=== PATIENT | male | born 1965 | race Hispanic/Latino ===

== ENCOUNTER 2017-10-31 09:00 | Emergency (ER) | payer OTHER ==
[~2017-10-31] VITALS: Ht 182.9 cm; Wt 112.5 kg
[~2017-10-31 09:00] MED LIST: MELOXICAM7.5 MG PO; METHOCARBAMOL750 MG PO; NORCO 10-325 T1 EACH
[2017-10-31] MEDS ORDERED: ALBUTEROL/IPRATROPIUM 3 ML NEB NEB ONE ×2 (09:30→10:00)
--- NOTE | 2017-10-31 09:33 | Diagnostic Imaging Report ---
PROCEDURE:CXR 2 VIEW - HOPD COMPARISON:None. INDICATIONS:PRODUCTIVE COUGH X3 DAYS, NO FEVER FINDINGS: Lines: None Lungs and pleura: The lungs are well inflated and clear. No evidence of pneumonia or pulmonary edema. No evidence of pleural effusion or pneumothorax. Heart and mediastinum: The cardiomediastinal silhouette is unremarkable. Bones: No acute bony findings. CONCLUSION: No acute radiographic abnormality. Dictated by: LEANDRA MINER M.D. on 10/31/2017 at 9:40 Electronically approved by: LEANDRA MINER M.D. on 10/31/2017 at 9:40
[2017-10-31 10:32] VITALS: BP 151/100
== END 2017-10-31 10:33 | disposition home or self-care (01) ==
LOC: FSED 09:00
DX: R05 Cough (principal); J98.01 Acute bronchospasm; R03.0 Elevated blood-pressure reading, without diagnosis of hypertension
CPT/HCPCS: 71046; 99283

== ENCOUNTER 2017-11-27 12:18 | Emergency (ER) | payer OTHER ==
[~2017-11-27] VITALS: Ht 182.9 cm; Wt 113.4 kg
--- OUTSIDE RECORDS SUMMARY | 2017-11-27 12:21 | XMS REPORT | Clinical Summary ---
Author Author [facility] Address Unknown Phone Unavailable Care Team Providers Care Baggageman Name Role Phone PCP Unavailable Allergies Active Allergy Reactions Severity Noted Date Comments Poison Ange Extract Anaphylaxis High 06/13/2017 Vancomycin Analogues Other (See Comments) 08/02/2017 Redmans syndrome Current Medications Prescription Sig. Disp. Refills Start End Date Status Date HYDROcodone-acetaminophen Take 1 tablet by mouth 30 tablet 0 08/16/19 Active (NORCO) 10-325 mg per every 6 (six) hours as 18 tablet needed for Pain. Max Daily Amount: 4 tablets traMADol (ULTRAM) 50 mg Take 50 mg by mouth every 06/22/19 Discontin tablet 6 (six) hours as needed 18 ued for Pain. aspirin 325 MG EC tablet Take 1 tablet (325 mg 30 tablet 0 06/23/19 07/19/19 Discontin total) by mouth daily for 18 18 ued 30 days. HYDROcodone-acetaminophen Take 1-2 tablets by mouth 60 tablet 0 06/22/19 07/07/19 (NORCO 10-325) 10-325 mg every 4 (four) hours as 18 18 per tablet needed for Pain for up to 15 days. Max Daily Amount: 12 tablets methocarbamol (ROBAXIN) Take 1 tablet (500 mg 60 tablet 0 06/22/19 07/07/19 500 MG tablet total) by mouth 4 (four) 18 18 times daily for 15 days. meloxicam (MOBIC) 15 MG Take 1 tablet (15 mg 30 tablet 0 06/22/19 07/18/19 Discontin tablet total) by mouth daily for 18 18 ued 30 days. polyethylene glycol Take 17 g by mouth every 30 each 0 06/23/19 07/23/19 (GLYCOLAX) 17 gram packet morning for 30 days. 18 18 VANCOMYCIN/0.9 % SOD Inject 250 mLs (1,500 mg 17143 mL 0 07/19/19 08/04/19 Discontin CHLORIDE (VANCOMYCIN IN total) intravenously 18 18 ued SODIUM CHLORIDE 0.9%, every 8 (eight) hours for NS,) 1.5 gram/250 mL Soln 19 days. traMADol (ULTRAM) 50 mg TAKE 1 TABLET BY MOUTH 06/29/19 08/04/19 Discontin tablet EVERY 4 TO 6 HOUR 18 18 ued NEEDED naproxen (NAPROSYN) 500 Take 500 mg by mouth. 05/18/19 08/04/19 Discontin MG tablet 18 18 ued HYDROcodone-acetaminophen Every 6 Hours as needed 08/16/19 Discontin (NORCO) 10-325 mg per for Pain 18 ued tablet meloxicam (MOBIC) 7.5 MG Daily 08/04/19 Discontin tablet 18 ued ondansetron (ZOFRAN) 4 MG Take 1 tablet (4 mg 12 tablet 0 07/27/19 08/07/19 Discontin tablet total) by mouth 3 (three) 18 18 ued times daily as needed for Nausea for up to 7 days. hydrOXYzine (ATARAX) 25 Take 1 tablet (25 mg 20 tablet 0 07/29/19 08/07/19 Discontin MG tablet total) by mouth every 6 18 18 ued (six) hours for 5 days. diphenhydrAMINE Take 25 mg by mouth every 08/04/19 Discontin (BENADRYL) 25 mg tablet night as needed for 18 ued Sleep. methylPREDNISolone Take 4 mg by mouth daily. 08/04/19 Discontin (MEDROL) 4 MG tablet 18 ued ondansetron (ZOFRAN) 4 MG Take 1 tablet (4 mg 12 tablet 0 08/07/19 08/16/19 Discontin tablet total) by mouth 3 (three) 18 18 ued times daily as needed for Nausea for up to 10 days. hydrOXYzine (ATARAX) 25 Take 1 tablet (25 mg 30 tablet 0 08/07/19 08/16/19 Discontin MG tablet total) by mouth every 6 18 18 ued (six) hours as needed for Itching for up to 10 days. linezolid (ZYVOX) 600 mg Take 1 tablet (600 mg 6 tablet 0 08/07/19 08/10/19 tablet total) by mouth every 12 18 18 (twelve) hours for 3 days. pantoprazole (PROTONIX) Take 1 tablet (40 mg 10 tablet 0 08/08/19 08/16/19 Discontin 40 MG tablet total) by mouth daily for 18 18 ued 10 days. calamine-zinc oxide Apply 50 mLs topically 2 50 mL 0 08/07/19 08/16/19 Discontin (CALADRYL) 8-8 % Lotn (two) times daily as 18 18 ued topical suspension needed (skin rash.) for up to 10 days. methylPREDNISolone follow package 21 tablet 0 08/07/19 08/14/19 (MEDROL DOSEPACK) 4 mg directions. 18 18 tablet aspirin 325 MG EC tablet Take 1 tablet (325 mg 30 tablet 0 09/08/19 10/08/19 total) by mouth daily for 18 18 30 days. HYDROcodone-acetaminophen Take 1-2 tablets by mouth 60 tablet 0 09/08/19 09/08/19 Discontin (NORCO 10-325) 10-325 mg every 6 (six) hours as 18 18 ued per tablet needed for Pain for up to 15 days. Max Daily Amount: 8 tablets cephalexin (KEFLEX) 500 Take 1 capsule (500 mg 30 capsule 0 09/08/19 09/18/19 MG capsule total) by mouth 3 (three) 18 18 times daily for 10 days. meloxicam (MOBIC) 15 MG Take 1 tablet (15 mg 30 tablet 0 09/08/19 10/08/19 tablet total) by mouth daily for 18 18 30 days. methocarbamol (ROBAXIN) Take 1 tablet (500 mg 60 tablet 0 09/08/19 09/23/19 500 MG tablet total) by mouth 4 (four) 18 18 times daily for 15 days. acetaminophen-codeine Take 1 tablet by mouth 20 tablet 0 09/15/19 09/25/19 (TYLENOL #3) 300-30 mg every 4 (four) hours as 18 18 per tablet needed for up to 10 days. Max Daily Amount: 6 tablets Active Problems Problem Noted Date Osteoarthritis of left hip 09/05/2017 Skin rash 08/03/2017 LAMIN (acute kidney injury) (HCC) 08/03/2017 Urticaria 08/03/2017 Vancomycin adverse reaction, initial encounter 08/03/2017 H/O total hip arthroplasty, right 07/12/2017 Tobacco abuse 07/12/2017 Mild tetrahydrocannabinol (THC) abuse 07/12/2017 Resolved Problems Problem Noted Date Resolved Date Urticaria 08/02/2017 08/03/2017 Chest wall abscess 07/12/2017 08/03/2017 Physical deconditioning 07/12/2017 08/03/2017 Arthritis of right hip 06/20/2017 08/03/2017 Encounters Date Type Specialty Care Team Description 09/15/2017 Emergency Emergency Medicine Jack Ross MD Primary osteoarthritis of left hip (Primary Dx);Bleeding;Status post left hip replacement 09/14/2017 Emergency Emergency Medicine Jack Ross MD Bleeding (Primary Dx);Status post left hip replacement;Anemia, blood loss;Arthritis 09/06/2017 Anesthesia General Internal Medicine Danny Hernandez MD Event 09/06/2017 Anesthesia General Internal Medicine Danny Hernnadez MD Event 09/05/2017 [facility] General Internal Medicine Jose Antonio Moreno - Encounter MD Ameya 09/07/2017 09/05/2017 Procedure Pass 09/05/2017 Surgery Jose Antonio Moreno ARTHROPLASTY,HIP MD Ameya 09/04/2017 Anesthesia Matias Rojas Event MD Jason 08/31/2017 [facility] Pre-Admission Testing Jose Antonio Moreno Encounter MD Ameya 08/15/2017 Office Visit Cardiology Darshan Diane MD Infection of prosthetic hip joint, subsequent encounter (Primary Dx);Skin rash;Tobacco abuse;Urticaria 08/02/2017 [facility] General Internal Medicine Kat Baker MD Urticaria (Primary - Encounter [place], Amanuel-Derek Dx);Rash;History of hip 08/06/2017 MD Isis replacement, total, Cameron Anderson MD right;History of MRSA infection;H/O total hip arthroplasty, right;Skin rash;Tobacco abuse;Vancomycin adverse reaction, initial encounter 07/28/2017 Emergency Emergency Medicine Kervin Harrell MD Vancomycin adverse reaction, initial encounter (Primary Dx);Chills;H/O total hip arthroplasty, right 07/26/2017 Emergency Emergency Medicine Sheldon Houston, Acute febrile illness (Primary Dx);Nausea and vomiting, intractability of vomiting not specified, unspecified vomiting type;Shortness of breath;Generalized weakness;LAMIN (acute kidney injury) (HCC);H/O total hip arthroplasty, right;S/P PICC central line placement 07/12/2017 [facility] General Internal Medicine Yara Marques MD H/O total hip - Encounter Maria Teresa Knowles MD arthroplasty, right 07/18/2017 Randi Ratliff MD (Primary Dx);Arthritis of right hip;Chest wall abscess;Mild tetrahydrocannabinol (THC) abuse;Physical deconditioning;Tobacco abuse;MRSA (methicillin resistant Staphylococcus aureus) infection 06/20/2017 [facility] General Internal Medicine Jose Antonio Moreno - Encounter MD Ameya 06/21/2017 06/20/2017 Procedure Pass 06/20/2017 Surgery Jose Antonio Moreno ARTHROPLASTY,HIP MD Ameya 06/19/2017 Anesthesia Hitesh Yee MD Event 06/13/2017 Hospital Pre-Admission Testing Jose Antonio Moreno Encounter MD Ameya after 11/26/2016 Social History Tobacco Use Types Packs/Day Years Used Date Former Smoker 12 Smokeless Tobacco: Never Used Tobacco Cessation: Ready to Quit: No; Counseling Given: Yes Comments: quit june 2017 Alcohol Use Drinks/Week oz/Week Comments Yes 4 Glasses of 10.8 wine 12 Cans of beer 2 Shots of liquor Sex Assigned at Date Recorded Not on file Last Filed Vital Signs Vital Sign Reading Time Taken Blood Pressure 123/72 09/15/2017 4:02 AM CDT Pulse 94 09/15/2017 4:02 AM CDT Temperature 36.6 C (97.9 F) 09/15/2017 4:02 AM CDT Respiratory Rate 18 09/15/2017 4:02 AM CDT Oxygen Saturation 97% 09/15/2017 4:02 AM CDT Inhaled Oxygen - - Concentration Weight 113.4 kg (250 lb) 09/15/2017 4:02 AM CDT Height 182.9 cm (6') 09/15/2017 4:02 AM CDT Body Mass Index 33.91 09/15/2017 4:02 AM CDT Plan of Treatment Health Maintenance Due Date Last Done Comments INFLUENZA VACCINE 11/05/2017 Implants Implanted Type Area Chief Operator Synthesis Device Expiration Model / Identifier Date Serial / Lot Acetabular Shell Multi Hole Liner E Joints Right: Hip [employer] [facility] 01/12/2022 01.32.154M Sie 54mm H / Implanted: Qty: 1 on 06/20/2017 by / Jose Antonio Moreno MD [id number] Cancellous Bone Screw. Flat Head Joints Right: Hip [employer] [facility] 11/02/2021 01.32.6625 6.5mm 25mm Length / Implanted: Qty: 1 on 06/20/2017 by / Jose Antonio Moreno MD [id number] Flat Uhmwpe Liner E Head 36mm Flat. Joints Right: Hip [employer] [facility] 11/14/2021 01.32.3644 Implanted: Qty: 1 on 06/20/2017 by MAHESH / Jose Antonio Moreno MD / [id number] Lat. Femoral Stem Size 4 Lat Ordoñez Joints Right: Hip [employer] [facility] 01/07/2022 01.18.144 Coated / Implanted: Qty: 1 on 06/20/2017 by / Jose Antonio Moreno MD [id number] Femoral Head 36mm Size M 0mm Joints Right: Hip [employer] [facility] 02/28/2022 01.29.209 Offset / Implanted: Qty: 1 on 06/20/2017 by / Jose Antonio Moreno MD [id number] Femoral Head Left: Hip [employer] [facility] 09/29/2021 01.29.208 Implanted: Qty: 1 on 09/05/2017 by / Jose Antonio Moreno MD / [id number] Cancellous Bone Screw Left: Hip [employer] [facility] 03/05/2021 01.32.6520 Implanted: Qty: 1 on 09/05/2017 by / Jose Antonio Moreno MD / [id number] Acetabular Shell Multi Hole Left: Hip [employer] 10/05/2018 01.32.154M Implanted: Qty: 1 on 09/05/2017 by Jose Antonio Epperson MD / [id number] Flat Uhmwpe Liner Left: Hip [employer] 04/10/2022 01.32.3644 Implanted: Qty: 1 on 09/05/2017 by MAHESH / Jose Antonio Moreno MD / [id number] Lat Femoral Stem Left: Hip [employer] [facility] 06/28/2020 01.18.144 Implanted: Qty: 1 on 09/05/2017 by / Jose Antonio Moreno MD / [id number] Procedures Procedure Name Priority Date/Time Associated Diagnosis Comments PROCEDURE W/ C-ARM 09/05/2017 Arthritis of left hip 12:30 PM CDT Case Notes PRE-CERT RECEIVED DR. ROBERT 2 HOURS Special Needs ([employer], C-ARM, TIVA WITH LONG ACTING SPINAL) ARTHROPLASTY,HIP 09/05/2017 Arthritis of left hip 12:30 PM CDT Case Notes PRE-CERT RECEIVED DR. ROBERT 2 HOURS Special Needs (MEDACTA, C-ARM, TIVA WITH LONG ACTING SPINAL) PROCEDURE W/ C-ARM 06/20/2017 Arthritis of right hip 12:24 PM CDT Special Needs (TIVA W/LONG ACTING SPINAL, MEDACTA, C-ARM) ARTHROPLASTY,HIP 06/20/2017 Arthritis of right hip 12:24 PM CDT Special Needs (TIVA W/LONG ACTING SPINAL, MEDACTA, C-ARM) after 11/26/2016 Results * CBC with platelet count + automated diff (09/15/2017 8:04 AM) Only the most recent of 10 results within the time period is included. Component Value Ref Range WBC 8.8 3.5 - 10.5 K/L RBC 3.36 (L) 4.63 - 6.08 M/L Hemoglobin 9.8 (L) 13.7 - 17.5 GM/DL Hematocrit 30.5 (L) 40.1 - 51.0 % MCV 90.8 79.0 - 92.2 fL MCH 29.2 25.7 - 32.2 pg MCHC 32.1 (L) 32.3 - 36.5 GM/DL RDW 13.4 11.6 - 14.4 % Platelets 416 150 - 450 K/CU MM MPV 8.8 (L) 9.4 - 12.4 fL nRBC 0 0 - 0 /100 WBC % Neutros 75 % % Lymphs 13 % % Monos 8 % % Eos 3 % % Baso 1 % # Neutros 6.64 (H) 1.78 - 5.38 K/L # Lymphs 1.11 (L) 1.32 - 3.57 K/L # Monos 0.72 0.30 - 0.82 K/L # Eos 0.24 0.04 - 0.54 K/L # Baso 0.07 0.01 - 0.08 K/L Immature 1 0 - 1 % Granulocytes-Relative Specimen Performing Laboratory Blood - Arm, Left [address] [address] * CBC with platelet count + automated diff (09/15/2017 8:04 AM) Only the most recent of 10 results within the time period is included. Specimen Performing Laboratory Blood Narrative The following orders were created for panel order CBC with platelet count + automated diff. Procedure Abnormality Status --------- ------ CBC with platelet count ...[[id number]]AbnormalFinal result Please view results for these tests on the individual orders. * PT/aPTT (09/14/2017 9:46 AM) Component Value Ref Range Protime 15.0 (H) 11.7 - 14.7 seconds INR 1.2 <=5.9 PTT 32.5 22.5 - 36.0 seconds Specimen Performing Laboratory Blood [address] [address] Narrative RECOMMENDED COUMADIN/WARFARIN INR THERAPY RANGES STANDARD DOSE: 2.0 - 3.0 Includes: PROPHYLAXIS for venous thrombosis, systemic embolization; TREATMENT for venous thrombosis and/or pulmonary embolus. HIGH RISK: Target INR is 2.5-3.5 for patients with mechanical heart valves. * Basic Metabolic Panel (09/14/2017 9:46 AM) Only the most recent of 9 results within the time period is included. Component Value Ref Range Sodium 132 (L) 136 - 145 meq/L Potassium 3.9 3.5 - 5.1 meq/L Chloride 99 98 - 107 meq/L CO2 22 22 - 29 meq/L BUN 16 7 - 21 mg/dL Creatinine 0.94 0.57 - 1.25 mg/dL Glucose 126 (H) 70 - 105 mg/dL Calcium 10.0 8.4 - 10.2 mg/dL EGFR 85Comment: ESTIMATED GFR IS NOT ACCURATE mL/min/1.73 sq m CREATININE CLEARANCE IN PREDICTING GLOMERULAR FILTRATION RATE. ESTIMATED GFR IS NOT APPLICABLE FOR DIALYSIS PATIENTS. Specimen Performing Laboratory Blood [address] [address] * Hemoglobin and hematocrit (09/06/2017 5:10 AM) Only the most recent of 2 results within the time period is included. Component Value Ref Range Hemoglobin 10.0 (L) 13.7 - 17.5 GM/DL Hematocrit 31.0 (L) 40.1 - 51.0 % Specimen Performing Laboratory Blood - Arm, Left [address] [address] * XR pelvis 1 or 2 views (09/05/2017 4:56 PM) Only the most recent of 3 results within the time period is included. Specimen Performing Laboratory GE RIS Narrative FINAL REPORT INDICATION: Status post left total hip replacement. COMPARISON: July 12, 2017 TECHNIQUE: Pelvis radiograph two views. FINDINGS / IMPRESSION: There is interval left total hip replacement with grossly aligned components. No fracture demonstrated. As before there is a right total hip replacement. Signed: Fareed Salomon MD Report Verified Date/Time:09/05/2017 17:21:49 Reading Location: [address] Consult Reading Room Procedure Note Interface, External Ris In - 09/05/2017 5:24 PM CDT FINAL REPORT INDICATION: Status post left total hip replacement. COMPARISON: July 12, 2017 TECHNIQUE: Pelvis radiograph two views. FINDINGS / IMPRESSION: There is interval left total hip replacement with grossly aligned components. No fracture demonstrated. As before there is a right total hip replacement. Signed: Fareed Salomon MD Report Verified Date/Time: 09/05/2017 17:21:49 Reading Location: [facility] C013 Consult Reading Room * [place] 3rd grade teacher in or 30 minute increments (09/05/2017 3:35 PM) Only the most recent of 2 results within the time period is included. Specimen Performing Laboratory GE RIS Narrative FINAL REPORT Fluoroscopy 3 views intraoperative 09/05/2017 at 1220. CLINICAL HISTORY: Instrument localization COMPARISON: None available IMPRESSION: Please correlate imaging report findings with the procedure note prepared by Dr. Moreno, as an intra-procedure imaging consultation was not requested. Reported fluoroscopy time: 89.0 seconds. Signed: Dario Brantley MD Report Verified Date/Time:09/06/2017 07:48:53 Reading Location: [address] Neuro Reading Room Procedure Note Interface, External Ris In - 09/06/2017 7:51 AM CDT FINAL REPORT Fluoroscopy 3 views intraoperative 09/05/2017 at 1220. CLINICAL HISTORY: Instrument localization COMPARISON: None available IMPRESSION: Please correlate imaging report findings with the procedure note prepared by Dr. Moreno, as an intra-procedure imaging consultation was not requested. Reported fluoroscopy time: 89.0 seconds. Signed: Dario Brantley MD Report Verified Date/Time: 09/06/2017 07:48:53 Reading Location: [address] Neuro Reading Room * HGB/HCT (H&H)-Stat Lab (09/05/2017 3:15 PM) Component Value Ref Range Hemoglobin 11.3 (L) 13.0 - 16.8 g/dL Hematocrit 33.0 (L) 40.0 - 50.0 % Specimen Performing Laboratory Blood - Arm, [place] [address] * Tissue Exam (09/05/2017 2:58 PM) Only the most recent of 2 results within the time period is included. Component Value Ref Range Case Report Surgical Pathology Report Case: [id number] Authorizing Provider:Jose Antonio Moreno Collected: 09/05/2017 Fabio Hou MD Ordering Location: [facility] Received:09/06/2017 0810 SERVICES Pathologist: Diana Singleton Specimens: A) - Bone, FEMORAL CANAL B) - Femoral Head,Left Hip DIAGNOSIS A. BONE, FEMORAL CANAL: - BONE MARROW AND BLOOD WITH MILD REACTIVE CHANGES - NEGATIVE FOR MALIGNANCY B. FEMORAL HEAD, LEFT HIP, EXCISION: - DEGENERATIVE JOINT DISEASE (OSTEOARTHRITIS) KD/pl Signing Pathologist Direct Phone Line: [phone] CPT Code(s) 81498 x2; 99261 x4 CLINICAL HISTORY Arthritis of left hip SPECIMEN SOURCE A. Femoral canal. B. Left femoral hip GROSS DESCRIPTION Specimen is received in two containers both labeled with the patient's information. Specimen A: Labeled "femoral canal bone" consists of hemorrhagic soft tissue and bone fragments measuring 2 x 1.4 x 0.4 cm in aggregate, submitted entirely in A1 for light decal. Specimen B: Labeled "left femoral head" and consists of a connor-red round femoral head measuring 4.5 x 4 x 3.5 cm with sharply amputated base. The articular surface has slight osteophyte formation around the periphery. The articular surface is intact. Section code: B1, B2, bone submitted for decalcification; B3, soft tissue and bone submitted for decalcification. CG/ew MICROSCOPIC DESCRIPTION A and B: Performed Specimen Performing Laboratory Tissue - Bone; Tissue - [facility] Femoral Head,Left Hip [address] [place] [address] * ANESTHESIA PERIPHERAL BLOCK (09/05/2017 10:48 AM) Narrative Dylan Cid MD 09/05/2017 10:48 AM Peripheral Block Patient location during procedure: pre-op Start time: 09/05/2017 10:30 AM End time: 09/05/2017 10:36 AM Reason for block: procedure for pain, at surgeon's request and post-op pain management Staffing Anesthesiologist: DYLAN CID Performed by: anesthesiologist Preanesthetic Checklist Completed: patient identified, site marked, surgical consent, pre-op evaluation, timeout performed, IV checked, risks and benefits discussed and monitors and equipment checked Peripheral Block Patient position: supine Prep: ChloraPrep Patient monitoring: heart rate, traffic monitor specialist and continuous pulse ox Anesthesia block type: FASCIA ILIACA. Laterality: left Injection technique: single-shot Procedures: ultrasound guided and landmark technique Local infiltration: bupivicaine Infiltration strength: 0.25 % Dose: 40 mL Needle Needle type: PAJUNK NANOLULA. Needle gauge: 21 G Needle length: 100 mm Assessment Injection assessment: negative aspiration for heme, no paresthesia on injection, incremental injection and local visualized surrounding nerve on ultrasound Paresthesia pain: none Heart rate change: no Slow fractionated injection: yes Additional Notes Patient tolerated procedure well. No pain throughout procedure or injection. Procedure Note Dylan Cid MD - 09/05/2017 10:46 AM CDT Peripheral Block Patient location during procedure: pre-op Start time: 09/05/2017 10:30 AM End time: 09/05/2017 10:36 AM Reason for block: procedure for pain, at surgeon's request and post-op pain management Staffing Anesthesiologist: DYLAN CID Performed by: anesthesiologist Preanesthetic Checklist Completed: patient identified, site marked, surgical consent, pre-op evaluation, timeout performed, IV checked, risks and benefits discussed and monitors and equipment checked Peripheral Block Patient position: supine Prep: ChloraPrep Patient monitoring: heart rate, traffic monitor specialist and continuous pulse ox Anesthesia block type: FASCIA ILIACA. Laterality: left Injection technique: single-shot Procedures: ultrasound guided and landmark technique Local infiltration: bupivicaine Infiltration strength: 0.25 % Dose: 40 mL Needle Needle type: PAJUNK NANOLINE. Needle gauge: 21 G Needle length: 100 mm Assessment Injection assessment: negative aspiration for heme, no paresthesia on injection, incremental injection and local visualized surrounding nerve on ultrasound Paresthesia pain: none Heart rate change: no Slow fractionated injection: yes Additional Notes Patient tolerated procedure well. No pain throughout procedure or injection. * ANESTHESIA SPINAL BLOCK (09/05/2017 10:46 AM) Only the most recent of 2 results within the time period is included. Narrative Dylan Cid MD 09/05/2017 10:46 AM Spinal Block Patient location during procedure: Block Room Start time: 09/05/2017 10:23 AM End time: 09/05/2017 10:27 AM Reason for block: procedure for pain, at surgeon's request and post-op pain management Staffing Anesthesiologist: DYLAN CID Performed by: anesthesiologist Preanesthetic Checklist Completed: patient identified, site marked, surgical consent, pre-op evaluation, timeout performed, IV checked, risks and benefits discussed and monitors and equipment checked Spinal Block Patient position: sitting Prep: Betadine Patient monitoring: heart rate, traffic monitor specialist and continuous pulse ox Approach: midline Location: L3-4 Injection technique: single-shot Needle Needle type: daniel. Needle gauge: 25 G Needle length: 10 cm Assessment Sensory level: T10 Events: cerebrospinal fluid Additional Notes Patient tolerated procedure well. No pain throughout procedure or injection. Procedure Note Dylan Cid MD - 09/05/2017 10:45 AM CDT Spinal Block Patient location during procedure: Block Room Start time: 09/05/2017 10:23 AM End time: 09/05/2017 10:27 AM Reason for block: procedure for pain, at surgeon's request and post-op pain management Staffing Anesthesiologist: DYLAN CID Performed by: anesthesiologist Preanesthetic Checklist Completed: patient identified, site marked, surgical consent, pre-op evaluation, timeout performed, IV checked, risks and benefits discussed and monitors and equipment checked Spinal Block Patient position: sitting Prep: Betadine Patient monitoring: heart rate, traffic monitor specialist and continuous pulse ox Approach: midline Location: L3-4 Injection technique: single-shot Needle Needle type: daniel. Needle gauge: 25 G Needle length: 10 cm Assessment Sensory level: T10 Events: cerebrospinal fluid Additional Notes Patient tolerated procedure well. No pain throughout procedure or injection. * TRANSFUSION SERVICE REPORT - SCAN (09/01/2017 5:53 PM) Only the most recent of 2 results within the time period is included. * Type and screen, automated (08/31/2017 1:34 PM) Only the most recent of 2 results within the time period is included. Component Value Ref Range ABO/RH AUTOMATED (BEAKER) AB POSITIVE Ab Scrn NEGATIVE Specimen [place] [address] * Manual Differential (08/15/2017 11:20 AM) Only the most recent of 5 results within the time period is included. Component Value Ref Range % Neutros 61 % % Lymphs 7 % % Monos 14 % % Eos 19 % # Neutros 5.98 (H) 1.78 - 5.38 K/ul # Lymphs 0.69 (L) 1.32 - 3.57 K/ul # Monos 1.37 (H) 0.30 - 0.82 K/uL # Eos 1.86 (H) 0.04 - 0.54 K/uL Total Counted 100 WBC Morphology Normal Platelet Morphology Normal Anisocytosis 1+ few Microcytes 1+ few Artifact Present Platelet Conc Adequate Specimen Performing [place] [address] Narrative Received comment: User comments: Slide comments: * Comprehensive metabolic panel (08/15/2017 11:20 AM) Only the most recent of 4 results within the time period is included. Component Value Ref Range Protein, Total 7.1 6.0 - 8.3 gm/dL Albumin 4.1 3.5 - 5.0 g/dL Alkaline Phosphatase 71 40 - 150 U/L Total Bilirubin 1.0 0.2 - 1.2 mg/dL Sodium 137 136 - 145 meq/L Potassium 4.3 3.5 - 5.1 meq/L Chloride 105 98 - 107 meq/L CO2 22 22 - 29 meq/L BUN 25 (H) 7 - 21 mg/dL Creatinine 1.08 0.57 - 1.25 mg/dL Glucose 112 (H) 70 - 105 mg/dL Calcium 9.0 8.4 - 10.2 mg/dL AST 17 5 - 34 U/L ALT 20 6 - 55 U/L EGFR 72Comment: ESTIMATED GFR IS NOT ACCURATE mL/min/1.73 sq m CREATININE CLEARANCE IN PREDICTING GLOMERULAR FILTRATION RATE. ESTIMATED GFR IS NOT APPLICABLE FOR DIALYSIS PATIENTS. Specimen Performing [place] [address] * Calcium, Ionized (08/06/2017 5:29 AM) Only the most recent of 2 results within the time period is included. Component Value Ref Range Calcium, Ion 1.03 (L) 1.12 - 1.27 mmol/L pH, Blood 7.41 Specimen Performing [place] [address] * Phosphorus (08/06/2017 5:29 AM) Only the most recent of 4 results within the time period is included. Component Value Ref Range Phosphorus 3.3Comment: Specimen slightly hemolyzed 2.3 - 4.7 mg/dL Specimen Performing Laboratory Blood [address] [address] * Magnesium (08/06/2017 5:29 AM) Only the most recent of 5 results within the time period is included. Component Value Ref Range Magnesium 2.3Comment: Specimen slightly hemolyzed 1.6 - 2.6 mg/dL Specimen Performing Laboratory [address] [address] * Hepatic function panel (08/05/2017 4:24 AM) Only the most recent of 6 results within the time period is included. Component Value Ref Range Protein, Total 5.5 (L) 6.0 - 8.3 gm/dL Albumin 3.3 (L) 3.5 - 5.0 g/dL Total Bilirubin 0.4 0.2 - 1.2 mg/dL Bilirubin, Direct 0.1 0.1 - 0.5 mg/dL Alkaline Phosphatase 71 40 - 150 U/L AST 14 5 - 34 U/L ALT 30 6 - 55 U/L Specimen Performing Laboratory Blood - Arm, [address] [address] * Uric acid (08/04/2017 4:39 AM) Component Value Ref Range Uric Acid 5.2 2.6 - 7.2 mg/dL Specimen Performing Laboratory Blood - Arm, [place] [address] * B-type Natriuretic Factor (BNP) (08/04/2017 4:39 AM) Component Value Ref Range BNP 217 (H) 0 - 100 pg/mL Specimen Performing Laboratory Blood - Arm, [address] [address] * Creatine Kinase (CK) (08/04/2017 4:39 AM) Component Value Ref Range Total CK 25 (L) 29 - 200 U/L Specimen Performing Laboratory Blood - Arm, [address] [address] * Sodium, random urine (08/03/2017 11:27 PM) Component Value Ref Range Sodium Urine 89 meq/L Specimen Performing Laboratory Urine [address] [address] Narrative Reference Range: No Normals * Protein, random urine (08/03/2017 11:27 PM) Component Value Ref Range Protein, Urine <7 0 - 14 mg/dL Specimen Performing Laboratory Urine [address] [address] * Creatinine, random urine (08/03/2017 11:27 PM) Component Value Ref Range Creatinine, Ur 80.1 mg/dL Specimen Performing Laboratory Urine [address] [address] Narrative Reference Range: No Normals * Eosinophil smear (08/03/2017 11:27 PM) Component Value Ref Range Eosinophil Smear No EOS seen No EOS seen Specimen Performing [place] [address] * US renal complete (08/03/2017 9:58 PM) Specimen Performing Laboratory GE RIS Narrative FINAL REPORT Comparison examination: None Right kidney : 12.6 x 5.8 x 6.2 cm No hydronephrosis. No renal stones. Normal renal parenchymal echogenicity. Renal parenchymal thickness: 16 mm No renal masses. No renal cysts. Left kidney : 12.4 x 6.1 x 6.7 cm No hydronephrosis. No renal stones. Normal renal parenchymal echogenicity. Renal parenchymal thickness: 21 mm No renal masses. No renal cysts. Bladder volume equals 177 cc. Normal bladder morphology. Impression: No acute or significant abnormality. Signed: Mahin Hendricks MD Report Verified Date/Time:08/03/2017 22:14:52 Reading Location: [address] Ortho Consult Reading Room Procedure Note Interface, External Ris In - 08/03/2017 10:17 PM CDT FINAL REPORT Comparison examination: None Right kidney : 12.6 x 5.8 x 6.2 cm No hydronephrosis. No renal stones. Normal renal parenchymal echogenicity. Renal parenchymal thickness: 16 mm No renal masses. No renal cysts. Left kidney : 12.4 x 6.1 x 6.7 cm No hydronephrosis. No renal stones. Normal renal parenchymal echogenicity. Renal parenchymal thickness: 21 mm No renal masses. No renal cysts. Bladder volume equals 177 cc. Normal bladder morphology. Impression: No acute or significant abnormality. Signed: Mahin Hendricks MD Report Verified Date/Time: 08/03/2017 22:14:52 Reading Location: [facility] Ortho Consult Reading Room * Vancomycin level, random (08/03/2017 10:27 AM) Component Value Ref Range Vancomycin Rm <1.1 ug/mL Specimen Performing Laboratory Blood [place] [id number] Narrative Reference Range: No Normals * TSH/Free T4 If Indicated (08/03/2017 4:54 AM) Component Value Ref Range TSH 0.30 (L) 0.35 - 4.94 uIU/mL Specimen Performing Laboratory Blood - Arm, [address] [address] * C-Reactive Protein (08/03/2017 4:54 AM) Only the most recent of 2 results within the time period is included. Component Value Ref Range CRP 0.48 0.00 - 0.50 mg/dL Specimen Performing Laboratory Blood - Arm, [address] [address] * T4, free (08/03/2017 4:54 AM) Component Value Ref Range Free T4 0.94 0.70 - 1.48 ng/dL Specimen Performing Laboratory Blood - Arm, [address] [address] * Hemoglobin A1c (08/03/2017 4:54 AM) Component Value Ref Range Hemoglobin A1C 5.8 4.3 - 6.1 % Specimen Performing Laboratory Blood - Arm, [address] [address] * Lipid panel (08/03/2017 4:54 AM) Component Value Ref Range Triglycerides 130 mg/dL Cholesterol 169 mg/dL HDL 32 mg/dL LDL Calculated 111 mg/dL Specimen Performing Laboratory Blood - Arm, [address] [address] Narrative Triglyceride Reference Range: Low Risk <150 [id number] High Risk 200-499 Very High Risk>=500 Cholesterol Reference Range: Low Risk <200 Balyzepqbe109-216 High Risk>240 HDL Cholesterol Reference Range: Low Risk >=60 High Risk <40 LDL Cholesterol Reference Range: Optimal<100 Near Xfvxvfj452-007 Xyziwhugqb206-189 Rwqv460-495 Very High >=190 * Urinalysis w/Microscopic (08/02/2017 11:34 PM) Only the most recent of 2 results within the time period is included. Component Value Ref Range Color, UA Yellow Clarity, UA Clear Specific [place], UA 1.015 1.001 - 1.035 pH, UA 6.0 5.0 - 8.0 Protein, UA Negative Negative Glucose, UA Negative Negative Ketones, UA Negative Negative Bilirubin, UA Negative Negative Blood, UA Negative Negative Nitrite, UA Negative Negative Leukocytes, UA Negative Negative Urobilinogen, UA 0.2 0.2 - 1.0 mg/dL RBC, UA <1 /HPF WBC, UA 1 /HPF Specimen Source Urine, Clean Catch Specimen Performing Laboratory Urine - Urine, Clean [facility] Catch [address] [place] [address] * POCT OCCULT BLOOD STOOL (GUIAC) [facility] ONLY (07/26/2017 2:44 PM) Component Value Ref Range Fecal Occult Blood Negative Negative (Guiac), POC QC Result Acceptable?, QC Acceptable POC FOB Card Lot #, POC [id number] [id number] 12-24 FOB Developer Lot # [id number] 2019- Specimen Performing Laboratory Stool * POC-Lactic Acid, Venous (07/26/2017 1:26 PM) Component Value Ref Range POC-Lactic Acid, Venous 0.6 (L)Comment: TESTED AT [address] 0.9 - 1.7 mmol/L [place] [address] Specimen Performing [place] [address] * XR chest 1 view portable / bedside (07/26/2017 1:18 PM) Only the most recent of 2 results within the time period is included. Specimen Performing Laboratory GE RIS Narrative FINAL REPORT TECHNIQUE: Frontal chest radiographs dated 07/26/2017. CLINICAL HISTORY: Fever, emesis, COMPARISON STUDY: Chest radiograph dated 07/13/2017 IMPRESSION: Left-sided PICC is unchanged. Lungs are clear. No pleural effusion or pneumothorax. Cardiomediastinal silhouette is normal in size. No pulmonary edema. Bones are normal in appearance. Signed: Clari Taylor MD Report Verified Date/Time:07/26/2017 13:30:26 Reading Location: [facility] Radiology Reading Room Procedure Note Interface, External Ris In - 07/26/2017 1:32 PM CDT FINAL REPORT TECHNIQUE: Frontal chest radiographs dated 07/26/2017. CLINICAL HISTORY: Fever, emesis, COMPARISON STUDY: Chest radiograph dated 07/13/2017 IMPRESSION: Left-sided PICC is unchanged. Lungs are clear. No pleural effusion or pneumothorax. Cardiomediastinal silhouette is normal in size. No pulmonary edema. Bones are normal in appearance. Signed: Clari Taylor MD Report Verified Date/Time: 07/26/2017 13:30:26 Reading Location: [facility] Radiology Reading Room * Blood culture #2 (07/26/2017 1:10 PM) Only the most recent of 3 results within the time period is included. Component Value Ref Range Result No growth in 5 days Specimen Performing Laboratory Blood - Arm, Right [address] [address] * Prothrombin time/INR (07/26/2017 1:10 PM) Only the most recent of 2 results within the time period is included. Component Value Ref Range Protime 14.9 (H) 11.7 - 14.7 seconds INR 1.2 <=5.9 Specimen Performing Laboratory Blood - Arm, Left [address] [address] Narrative RECOMMENDED COUMADIN/WARFARIN INR THERAPY RANGES STANDARD DOSE: 2.0 - 3.0 Includes: PROPHYLAXIS for venous thrombosis, systemic embolization; TREATMENT for venous thrombosis and/or pulmonary embolus. HIGH RISK: Target INR is 2.5-3.5 for patients with mechanical heart valves. * Rapid influenza A&B screen (07/26/2017 1:10 PM) Component Value Ref Range Rapid Influenza A Antigen Negative Negative, Inconclusive Rapid influenza B Antigen Negative Negative, Inconclusive Specimen Performing Laboratory Nasal - Nasal Mucosa [address] [address] * Urine culture (07/26/2017 1:10 PM) Component Value Ref Range Result No growth Specimen Performing Laboratory Urine - Urine, Voided [address] [address] * BCID (07/26/2017 1:09 PM) Component Value Ref Range Scan Result Specimen Performing Laboratory Blood [address] [address] Narrative Result comments: Coagulase Negative Staphylococcus Species (CoNS) DETECTED, Methicillin Susceptible First line therapy: cefazolin, nafcillin (nafcillin preferred for Central Nervous System infection) Coagulase Negative Staphylococcus (CoNS) DETECTED mecA NOT DETECTED Other organisms and resistance markers not contained in this PCR panel cannot be excluded and follow-up of traditional culture results is required. This sample was tested at the [facility] Clinical Microbiology Laboratory using the [employer] Blood Culture ID Panel. This test is FDA cleared for in vitro diagnostic use and has been verified and approved by the [facility] Clinical Microbiology laboratory for clinical use. Reference Range: Not Detected * Vancomycin level, trough (07/17/2017 12:42 PM) Only the most recent of 3 results within the time period is included. Component Value Ref Range Vancomycin Tr 18.5 10.0 - 20.0 ug/mL Specimen Performing Laboratory Blood - Central Venous [facility] Line [address] [place] [address] Narrative Please obtain vancomycin trough 30 min prior to scheduled dose. Hold dose if level >20 * Body fluid cell count with differential (07/13/2017 11:46 AM) Component Value Ref Range Appearance Bloody (A) Clear Color Red (A) Colorless, Straw RBCs 143835 (H) <=1 /cu mm Adjusted WBC Count 2824 (H) <=5 /cu mm Lining Cells 0 <=1 /cu mm % Segs 4 % % Lymphs 26 % % Monos 63 % % Eos 7 % % Baso 0 % Container Body Fluid EDTA Tube Specimen Performing Laboratory Aspirate - Hip, Right [address] [address] * Body fluid culture + gram stain (07/13/2017 11:45 AM) Component Value Ref Range Result No growth Gram Stain Result 1+ WBCs Gram Stain Result No organisms seen Specimen Performing Laboratory Body Fluid - Hip, Right [address] [address] * FL aspiration hip right (07/13/2017 10:45 AM) Specimen Performing Laboratory GE RIS Narrative FINAL REPORT Right hip aspiration History: Rule out infection Modality: Fluoroscopy Approach: Right anterior percutaneous Sedation: None Anesthesia: 1% lidocaine local Technique: After informed written consent was obtained, the right hip was localized using fluoroscopy and an approach well lateral to the femoral neurovascular bundle was selected. The skin was marked. After the usual sterile preparation and application of local anesthesia, a 22 gauge spinal needle was advanced into the hip joint using fluoroscopic assistance. Approximately 5 cc of dark serosanguineous fluid is aspirated. Disposition: The patient tolerated the procedure well, without immediate complications. Fluoro time: 0.23 minutes Number of images obtained: 1 Impression: 1. Technically successful right hip aspiration. Signed: Hong Nicholson MD Report Verified Date/Time:07/19/2017 14:12:50 Reading Location: [address] Ortho Consult Reading Room Procedure Note Interface, External Ris In - 07/19/2017 2:15 PM CDT FINAL REPORT Right hip aspiration History: Rule out infection Modality: Fluoroscopy Approach: Right anterior percutaneous Sedation: None Anesthesia: 1% lidocaine local Technique: After informed written consent was obtained, the right hip was localized using fluoroscopy and an approach well lateral to the femoral neurovascular bundle was selected. The skin was marked. After the usual sterile preparation and application of local anesthesia, a 22 gauge spinal needle was advanced into the hip joint using fluoroscopic assistance. Approximately 5 cc of dark serosanguineous fluid is aspirated. Disposition: The patient tolerated the procedure well, without immediate complications. Fluoro time: 0.23 minutes Number of images obtained: 1 Impression: 1. Technically successful right hip aspiration. Signed: Hong Nicholson MD Report Verified Date/Time: 07/19/2017 14:12:50 Reading Location: [address] Ortho Consult Reading Room * Rapid drug screen, urine (07/12/2017 5:20 PM) Component Value Ref Range Barbiturate Screen Negative Negative Benzodiazepine Screen Negative Negative Cocaine (Metab.) Screen Negative Negative Methadone Screen Negative Negative Opiate Screen Negative Negative Cannabinoid Screen Positive (A) Negative Amph/Methamph Screen Negative Negative Phencyclidine Screen Negative Negative Oxycodone Screen Negative Negative Specimen Performing Laboratory Urine [facility] [address] [address] Narrative DRUGCUTOFF CONC. Cocaine 300 ng/mL Ykwkbchygcu12 ng/mL Cwyolnkfibllzz778 ng/mL Barbiturate 200 ng/mL Gpyeroxndsnlk36 ng/mL Hncxxq836 ng/mL Methadone 300 ng/mL Amphetamine/ 1000 ng/mL Methamphetamine Oxycodone 300 ng/mL This assay provides an unconfirmed qualitative test result for the clinical management of patients in emergency situations. Chain of custody not maintained. Some kzjz-stu-usanhjv medications, as well as adulterants, may cause inaccurate results. Clinical correlation should be applied. A more comprehensive drug screen or confirmation of a detected drug may be performed upon request. * CBC (Hemogram only) (07/12/2017 4:44 PM) Component Value Ref Range WBC 5.9 3.5 - 10.5 K/L RBC 3.81 (L) 4.63 - 6.08 M/L Hemoglobin 11.4 (L) 13.7 - 17.5 GM/DL Hematocrit 35.3 (L) 40.1 - 51.0 % MCV 92.7 (H) 79.0 - 92.2 fL MCH 29.9 25.7 - 32.2 pg MCHC 32.3 32.3 - 36.5 GM/DL RDW 12.0 11.6 - 14.4 % Platelets 326 150 - 450 K/CU MM MPV 9.4 9.4 - 12.4 fL nRBC 0 0 - 0 /100 WBC Specimen Performing Laboratory [address] [address] * RHYTHM STRIP - SCAN (06/22/2017 3:12 PM) * Platelet count (06/13/2017 1:01 PM) Component Value Ref Range Platelets 210 150 - 450 K/CU MM Specimen Performing Laboratory Blood [address] [address] * Hemoglobin (06/13/2017 1:01 PM) Component Value Ref Range Hemoglobin 15.2 13.7 - 17.5 GM/DL Specimen Performing Laboratory [address] [address] after 11/26/2016
[2017-11-27 12:45] VITALS: BP 144/82
[2017-11-27] MEDS ORDERED: CLINDAMYCIN PHOS 600 MG/ 4 ML VIAL IM ONE (12:45)
[2017-11-27] MEDS ORDERED: TRIMETHOPRIM/SULFAMETHOXAZOLE 160-800 MG TAB PO ONE (12:45)
== END 2017-11-27 13:05 | disposition home or self-care (01) ==
LOC: FSED 12:18
DX: L02.11 Cutaneous abscess of neck (principal); Z86.14 Personal history of Methicillin resistant Staphylococcus aureus infection
CPT/HCPCS: 99282

== ENCOUNTER 2017-12-22 17:28 | Emergency (ER) | payer OTHER ==
[~2017-12-22] VITALS: Ht 182.9 cm; Wt 112.5 kg
--- OUTSIDE RECORDS SUMMARY | 2017-12-22 17:32 | XMS REPORT | Continuity of Care Document ---
Author Author [facility] Interface Address Unknown Phone Unavailable Problems Problem Status Onset Date Classification Date Reported Comments Source K40.90 UNILATERAL INGUINAL HERNIA, WITHO Active 06/25/2015 [facility] Discharge Diagnosis: Headache 07/05/2014 07/08/2014 [facility] Discharge Diagnosis: Acute sinusitis 07/05/2014 07/08/2014 [facility] NOSEBLEED Active 07/05/2014 [facility] Discharge Diagnosis: Acute headache 07/04/2014 07/07/2014 [facility] Discharge Diagnosis: Occipital neuralgia 07/04/2014 07/07/2014 [facility] HEAD PAIN Active 07/04/2014 [facility] Bilateral hip joint arthritis Active Problem 06/26/2017 [facility] Pre-operative clearance Active Diagnosis 06/26/2017 [facility] Non morbid obesity due to excess calories Active Problem 06/26/2017 [facility] Pain of right hip joint Active Diagnosis 06/26/2017 [facility] Encounter to discuss test results Active Diagnosis 07/31/2015 [facility] Prediabetes Active Diagnosis 07/31/2015 [facility] Umbilical hernia Active Diagnosis 07/31/2015 [facility] Vitamin D deficiency Active Diagnosis 02/11/2016 [facility] Hyperlipidemia Active Diagnosis 07/31/2015 [facility] History of inguinal hernia Active Diagnosis 07/31/2015 [facility] Physical exam Active Diagnosis 06/25/2015 [facility] BMI 36.0-36.9,adult Active Diagnosis 06/25/2015 [facility] Inguinal hernia Active Diagnosis 06/25/2015 [facility] Medications Medication Details Route Status Patient Instructions Ordering Provider Order Date Source Vitamin D (Ergocalciferol) 1 capsule Orally Active 38377 UNIT Orally once per week (MUST SEE DOCTOR BEFORE NEXT REFILL) Ghebranious 07/29/2015 [facility] ibuprofen 600 mg oral tablet 600 mg=1 tab, PO, Q8H, PRN Headache 6-10, take with food, # 30 tab, 0 Refill(s)Special Instructions: take with food Active 07/05/2014 [facility] Amoxicillin 875 MG / Clavulanate 125 MG Oral Tablet [Augmentin 875-mg] 875 mg=1 tab, PO, BID, X 10 day, # 20 tab, 0 Refill(s) Active 07/05/2014 [facility] Ketorolac 15 mg, 1 mL, Route: IVP, Drug form: INJ, ONCE, Dosing Weight 125, kg, Priority: STAT, Start date: 07/05/14 13:33:00, Stop date: 07/05/14 13:33:00Notes: (Same as:Toradol) IV bolus must be given >15 seconds. Give IM administration slowly and deeply into the muscle. Not for use > 4 days. Inactive 07/05/2014 [facility] Reglan 10 mg, 2 mL, Route: IVP, Drug form: INJ, ONCE, Dosing Weight 125, kg, Priority: STAT, Start date: 07/05/14 12:50:00, Stop date: 07/05/14 12:50:00Notes: (Same as: Reglan) Inactive 07/05/2014 [facility] Acetaminophen 325 MG / butalbital 50 MG / Caffeine 40 MG Oral Tablet [Esgic] 2 tab, Route: PO, Drug Form: TAB, Dosing Weight 125, kg, ONCE, Start date: 07/04/14 21:09:00, Stop date: 07/04/14 21:09:00Notes: (tsdwfsuqccnha-osnnagaeiy-llpgozcs 325-50-40mg) Do not exceed 4 gm/day of acetaminophen. (Same as: Esgic, Fioricet) Inactive 07/05/2014 [facility] ketOROLAC 30 mg/mL injectable solution 60 mg, 2 mL, Route: IM, Drug form: INJ, ONCE, Dosing Weight 125, kg, Start date: 07/04/14 20:08:00, Stop date: 07/04/14 20:08:00Notes: (Same as:Toradol) IV bolus must be given > 15 seconds. Give IM administration slowly and deeply into the muscle. Not for use > 4 days MEDICATION WASTE Product Size: 60 mg Product Wasted: __0_ mg Inactive 07/05/2014 [facility] Zofran ODT 4 mg, Route: PO, Drug form: TABDIS, ONCE, Dosing Weight 125, kg, Priority: STAT, Start date: 07/04/14 19:57:00, Stop date: 07/04/14 19:57:00 Inactive 07/05/2014 [facility] Benadryl 25 mg, Route: PO, ONCE, Dosing Weight 125, kg, Start date: 07/04/14 19:57:00, Stop date: 07/04/14 19:57:00 Inactive 07/05/2014 [facility] Ketorolac 30 mg, 1 mL, Route: IVP, Drug form: INJ, ONCE, Dosing Weight 125, kg, Priority: STAT, Start date: 07/04/14 19:57:00, Stop date: 07/04/14 19:57:00Notes: (Same as:Toradol) IV bolus must be given >15 seconds. Give IM administration slowly and deeply into the muscle. Not for use > 4 days MEDICATION WASTE Product Size: 30 mg Product Wasted: __0_ mg Inactive 07/05/2014 [facility] Metoclopramide 10 MG Oral Tablet [Reglan] 10 mg, 1 tab, Route: PO, Drug form: TAB, ONCE, Dosing Weight 125, kg, Start date: 07/04/14 19:57:00, Stop date: 07/04/14 19:57:00Notes: (Same as: Reglan) Take 30 min before meals Inactive 07/05/2014 [facility] Tramadol HCl 1 tablet as needed Orally Active 50 MG Orally every 6 hrs Ghebranious [facility] NO OTC meds taken not defined In Vitro Active In Vitro Ghebranious [facility] NO OTC meds taken Unknown In Vitro Active In Vitro [facility] Allergies, Adverse Reactions, Alerts Substance Category Reaction Severity Reaction type Status Date Reported Comments Source N.K.D.A. Adverse Reaction Info Not Available Adverse Reaction Active 06/14/2017 [facility] Immunizations Immunization Date Given Site Status Last Updated Comments Source FLU 3YRS & UP 73699 06/22/2015 completed [facility] PNEUMOCOCCAL VACCINE 06/22/2015 completed [facility] Results Order Name Results Value Reference Range Date Interpretation Comments Source Abdomen/Pelvis wo IV contrast CT Abdomen/Pelvis wo IV contrast CT Study: Abdomen/Pelvis wo IV contrast CT Clinical Indication: Inguinal hernnia Comparison: None TECHNIQUE: Multiple axial CT images of the abdomen and pelvis were acquired without the administration of intravenous contrast. Oral contrast was administered to the patient. Sagittal and coronal reformatted images were performed. CT Radiation Dose DLP 1357 mGy-cm FINDINGS: The visualized lung bases are clear bilaterally. The liver is diffusely low in attenuation, compatible with fatty infiltration. Gallbladder, pancreas, spleen, adrenal glands, and kidneys are within the normal limits imposed by the lack of intravenous contrast. Urinary bladder and prostate are unremarkable.The visualized hollow viscera and appendix are normal in appearance. No intraperitoneal free air, free fluid, or pathologic adenopathy is seen. No inguinal hernia is seen. There is a fat-containing umbilical hernia. The neck of the hernia measures 2 cm in axial dimension and 1.9 cm craniocaudally. The hernia sac measures 2.9 x 2.9 x 4.4 cm. No suspicious osseous lesions are seen. IMPRESSION: 1. No inguinal hernia. 2. Small, fat-containing umbilical hernia. SL: [id number] 06/29/2015 - - Read by: Rui Jensen MD Dictated Date/time: 06/29/15 15:37 Electronically Signed by: Rui Jensen MD 06/29/15 15:40 FINAL REPORT [facility] CHEM PANEL BUN 16 mg/dL 7 - 22 07/05/2014 [facility] CHEM PANEL Glucose Lvl 95 mg/dL 70 - 99 07/05/2014 2Interpretive Data: Adult reference range values reflect the clinical guidelines of the [place] [employer]. [facility] CHEM PANEL Total Protein 7.3 g/dL 6.4 - 8.4 07/05/2014 [facility] CHEM PANEL CO2 30 meq/L 24 - 32 07/05/2014 [facility] CHEM PANEL ALT 29 unit/L 0 - 65 07/05/2014 [facility] CHEM PANEL Albumin Lvl 4.1 g/dL 3.5 - 5.0 07/05/2014 [facility] CHEM PANEL AST 14 unit/L 0 - 37 07/05/2014 [facility] CHEM PANEL Alk Phos 62 unit/L 39 - 136 07/05/2014 [facility] CHEM PANEL Bili Total 0.9 mg/dL 0.2 - 1.3 07/05/2014 [facility] CHEM PANEL eGFR 80 mL/min/1.73m2 07/05/2014 1Result Comment: The eGFR is calculated using the CKD-EPI formula. In most young, healthy individuals the eGFR will be >90 mL/min/1.73m2. The eGFR declines with age. An eGFR of 60-89 may be normal in some populations, particularly the elderly, for whom the CKD-EPI formula has not been extensively validated. Use of the eGFR is not recommended in the following populations: Individuals with unstable creatinine concentrations, including patients and those with serious co-morbid conditions. Patients with extremes in muscle mass or diet. The data above are obtained from the National Kidney Disease Education Program (NKDEP) which additionally recommends that when the eGFR is used in patients with extremes of body mass index for purposes of drug dosing, the eGFR should be multiplied by the estimated BMI. [facility] CHEM PANEL Potassium Lvl 4.2 meq/L 3.5 - 5.1 07/05/2014 [facility] CHEM PANEL Chloride Lvl 104 meq/L 95 - 109 07/05/2014 [facility] CHEM PANEL Creatinine Lvl 1.1 mg/dL 0.5 - 1.4 07/05/2014 [facility] CHEM PANEL Sodium Lvl 139 meq/L 135 - 145 07/05/2014 [facility] CHEM PANEL Calcium Lvl 8.7 mg/dL 8.5 - 10.5 07/05/2014 [facility] CHEM PANEL A/G Ratio 1.3 0.7 - 1.6 07/05/2014 [facility] CHEM PANEL Globulin 3.2 g/dL 2.0 - 4.0 07/05/2014 [facility] CHEM PANEL AGAP 9.2 meq/L 10.0 - 20.0 07/05/2014 [facility] CHEM PANEL B/C Ratio 15 6 - 25 07/05/2014 [facility] HEMATOLOGY PTT 27.6 s 22.9 - 35.8 07/05/2014 4Interpretive Data: Heparin Therapeutic Range: 57 - 92 Seconds [facility] HEMATOLOGY PT 13.2 s 12.0 - 14.7 07/05/2014 [facility] HEMATOLOGY INR 1.00 0.85 - 1.17 07/05/2014 3Interpretive Data: RECOMMENDED RANGES FOR PROTIME INR: 2.0-3.0 for most medical and surgical thromboembolic states. 2.5-3.5 for artificial heart valves and recurrent embolism. INR SHOULD BE USED ONLY FOR PATIENTS ON STABLE ANTICOAGULANT THERAPY. [facility] MPV 9.4 fL 7.4 - 10.4 07/05/2014 [facility] RDW 12.2 % 11.5 - 14.5 07/05/2014 [facility] Platelet 155 K/CMM 133 - 450 07/05/2014 [facility] MCV 93.5 fL 80.0 - 94.0 07/05/2014 [facility] Hct 45.7 % 42.0 - 54.0 07/05/2014 [facility] MCH 32.9 pg 27.0 - 31.0 07/05/2014 [facility] MCHC 35.1 g/dL 32.0 - 36.0 07/05/2014 [facility] WBC 8.8 K/CMM 3.7 - 10.4 07/05/2014 [facility] RBC 4.88 M/CMM 4.70 - 6.10 07/05/2014 [facility] Hgb 16.0 g/dL 14.0 - 18.0 07/05/2014 [facility] Stomatocyte Slight 07/05/2014 [facility] Basophils # 0.1 K/CMM 0.0 - 0.2 07/05/2014 [facility] Micromegakar Slight 07/05/2014 [facility] Eosinophils 4.1 % 0.0 - 4.0 07/05/2014 [facility] Basophils 0.7 % 0.0 - 1.0 07/05/2014 [facility] Lymphocytes # 1.8 K/CMM 1.0 - 5.5 07/05/2014 [facility] Segs-Bands # 5.6 K/CMM 1.5 - 8.1 07/05/2014 [facility] Eosinophils # 0.4 K/CMM 0.0 - 0.5 07/05/2014 [facility] Monocytes # 1.0 K/CMM 0.0 - 0.8 07/05/2014 [facility] Monocytes 11.3 % 2.0 - 12.0 07/05/2014 [facility] Lymphocytes 20.5 % 20.0 - 40.0 07/05/2014 [facility] Segs 63.4 % 45.0 - 75.0 07/05/2014 [facility] HEMATOLOGY Plt Morph Normal (07/05/14 2:38 PM) 07/05/2014 [facility] Brain wo contrast CT Brain wo contrast CT HISTORY: Headache. Brain CT without contrast. No acute intracranial lesion or hemorrhage, infarct, mass or pathologic extra- axial fluid. There is mucosal sinus disease with opacification of bilateral sphenoid sinus air cells. Fluid within ethmoid sinus air cells. Mucosal thickening within right maxillary sinus. Erosion of the medial wall the right maxillary sinus. Bilateral elinor bullosa within the nasal cavity. IMPRESSION: No acute intracranial finding. Paranasal sinus disease. SL:13 07/05/2014 - - Read by: Robin Russell MD Dictated Date/time: 07/05/14 13:07 Electronically Signed by: Robin Russell MD 07/05/14 13:08 FINAL REPORT [facility] Vital Signs Vital Sign Value Date Comments Source Weight 244 06/14/2017 [facility] Height 71 06/14/2017 [facility] Heart Rate 68 06/14/2017 [facility] Diastolic (mm Hg) 74 06/14/2017 [facility] Systolic (mm Hg) 116 06/14/2017 [facility] Weight 266 07/29/2015 [facility] Height 71 07/29/2015 [facility] Heart Rate 70 07/29/2015 [facility] Diastolic (mm Hg) 82 07/29/2015 [facility] Systolic (mm Hg) 120 07/29/2015 [facility] Weight 265 06/22/2015 [facility] Height 71 06/22/2015 [facility] Heart Rate 69 06/22/2015 [facility] Diastolic (mm Hg) 84 06/22/2015 [facility] Systolic (mm Hg) 122 06/22/2015 [facility] Systolic (mm Hg) 125 07/05/2014 [facility] Diastolic (mm Hg) 60 07/05/2014 [facility] Heart Rate 66 07/05/2014 [facility] Respitory Rate 18 07/05/2014 [facility] Temperature Oral (F) 98.0 F 07/05/2014 [facility] Heart Rate 70 07/05/2014 [facility] Systolic (mm Hg) 134 07/05/2014 [facility] Diastolic (mm Hg) 90 07/05/2014 [facility] Respitory Rate 20 07/05/2014 [facility] Temperature Oral (F) 98.0 F 07/05/2014 [facility] Weight 125 07/05/2014 [facility] BMI Calculated 36.36 07/05/2014 [facility] Height 185.42 cm 07/05/2014 [facility] Respitory Rate 18 07/05/2014 [facility] Heart Rate 69 07/05/2014 [facility] Temperature Oral (F) 98.1 F 07/05/2014 [facility] Systolic (mm Hg) 151 07/05/2014 [facility] Diastolic (mm Hg) 99 07/05/2014 [facility] Temperature Oral (F) 98.5 F 07/05/2014 [facility] Systolic (mm Hg) 129 07/05/2014 [facility] Diastolic (mm Hg) 78 07/05/2014 [facility] Respitory Rate 18 07/05/2014 [facility] Heart Rate 61 07/05/2014 [facility] Systolic (mm Hg) 155 07/05/2014 [facility] Diastolic (mm Hg) 87 07/05/2014 [facility] Heart Rate 60 07/05/2014 [facility] Respitory Rate 18 07/05/2014 [facility] Temperature Oral (F) 98.9 F 07/05/2014 [facility] BMI Calculated 36.36 07/04/2014 [facility] Weight 125 07/04/2014 [facility] Height 185.42 cm 07/04/2014 [facility] Temperature Oral (F) 98.0 F 07/04/2014 [facility] Heart Rate 88 07/04/2014 [facility] Systolic (mm Hg) 155 07/04/2014 [facility] Diastolic (mm Hg) 87 07/04/2014 [facility] Respitory Rate 18 07/04/2014 [facility] Encounters Location Location Details Encounter Type Encounter Number Reason For Visit Attending Provider ADM Date DC Date Status Source [facility] [id number] Herb JaraThao 07/04/2014 07/05/2014 [facility] [id number] Nadege Fletcher 07/05/2014 07/05/2014 [facility] Supervisor Warping Department-Physical [id number] 06/22/2015 06/22/2015 [facility] Supervisor Warping Department-Physical [id number] 06/22/2015 06/22/2015 [facility] Supervisor Warping Department-Physical [id number] 06/22/2015 06/22/2015 [facility] FOLLOW UP ON RESULTS [id number] 07/29/2015 07/29/2015 [facility] FOLLOW UP ON RESULTS [id number] 07/29/2015 07/29/2015 [facility] Refill [id number] 02/10/2016 02/10/2016 [facility] Procedures Procedure Code Date Perfomer Comments Source
--- OUTSIDE RECORDS SUMMARY | 2017-12-22 17:32 | XMS REPORT | Clinical Summary ---
Author Author KRISTIAN [facility] Address Unknown Phone Unavailable Care Team Providers Care Water Resources Project Manager Name Role Phone Sharpless PCP Allergies Comments Active Allergy Reactions Severity Noted Date Poison Ange Extract Anaphylaxis High 06/13/2017 Redmans syndrome Vancomycin Analogues Other (See 08/02/2017 Comments) Medications End Date Status Medication Sig Dispensed Refills Start Date Active HYDROcodone-acetaminophen Take 1 tablet 30 tablet 0 (NORCO) 10-325 mg per by mouth 8 tablet every 6 (six) hours as needed for Pain. Max Daily Amount: 4 tablets 06/21/2017 Discontinued traMADol (ULTRAM) 50 mg Take 50 mg by 0 tablet mouth every 6 (six) hours as needed for Pain. 07/18/2017 Discontinued aspirin 325 MG EC tablet Take 1 tablet 30 tablet 0 (325 mg 8 total) by mouth daily for 30 days. 07/06/2017 HYDROcodone-acetaminophen Take 1-2 60 tablet 0 (NORCO 10-325) 10-325 mg tablets by 8 per tablet mouth every 4 (four) hours as needed for Pain for up to 15 days. Max Daily Amount: 12 tablets 07/06/2017 methocarbamol (ROBAXIN) Take 1 tablet 60 tablet 0 500 MG tablet (500 mg 8 total) by mouth 4 (four) times daily for 15 days. 07/17/2017 Discontinued meloxicam (MOBIC) 15 MG Take 1 tablet 30 tablet 0 tablet (15 mg total) 8 by mouth daily for 30 days. 07/22/2017 polyethylene glycol Take 17 g by 30 each 0 (GLYCOLAX) 17 gram packet mouth every 8 morning for 30 days. 08/03/2017 Discontinued VANCOMYCIN/0.9 % SOD Inject 250 96369 mL 0 CHLORIDE (VANCOMYCIN IN mLs (1,500 mg 8 SODIUM CHLORIDE 0.9%, total) NS,) 1.5 gram/250 mL Soln intravenously every 8 (eight) hours for 19 days. 08/03/2017 Discontinued traMADol (ULTRAM) 50 mg TAKE 1 TABLET 0 tablet BY MOUTH 8 EVERY 4 TO 6 HOUR NEEDED 08/03/2017 Discontinued naproxen (NAPROSYN) 500 Take 500 mg 0 MG tablet by mouth. 8 08/15/2017 Discontinued HYDROcodone-acetaminophen Every 6 Hours 0 (NORCO) 10-325 mg per as needed for tablet Pain 08/03/2017 Discontinued meloxicam (MOBIC) 7.5 MG Daily 0 tablet 08/06/2017 Discontinued ondansetron (ZOFRAN) 4 MG Take 1 tablet 12 tablet 0 tablet (4 mg total) 8 by mouth 3 (three) times daily as needed for Nausea for up to 7 days. 08/06/2017 Discontinued hydrOXYzine (ATARAX) 25 Take 1 tablet 20 tablet 0 MG tablet (25 mg total) 8 by mouth every 6 (six) hours for 5 days. 08/03/2017 Discontinued diphenhydrAMINE Take 25 mg by 0 (BENADRYL) 25 mg tablet mouth every night as needed for Sleep. 08/03/2017 Discontinued methylPREDNISolone Take 4 mg by 0 (MEDROL) 4 MG tablet mouth daily. 08/15/2017 Discontinued ondansetron (ZOFRAN) 4 MG Take 1 tablet 12 tablet 0 tablet (4 mg total) 8 by mouth 3 (three) times daily as needed for Nausea for up to 10 days. 08/15/2017 Discontinued hydrOXYzine (ATARAX) 25 Take 1 tablet 30 tablet 0 MG tablet (25 mg total) 8 by mouth every 6 (six) hours as needed for Itching for up to 10 days. 08/09/2017 linezolid (ZYVOX) 600 mg Take 1 tablet 6 tablet 0 tablet (600 mg 8 total) by mouth every 12 (twelve) hours for 3 days. 08/15/2017 Discontinued pantoprazole (PROTONIX) Take 1 tablet 10 tablet 0 40 MG tablet (40 mg total) 8 by mouth daily for 10 days. 08/15/2017 Discontinued calamine-zinc oxide Apply 50 mLs 50 mL 0 (CALADRYL) 8-8 % Lotn topically 2 8 topical suspension (two) times daily as needed (skin rash.) for up to 10 days. 08/13/2017 methylPREDNISolone follow 21 tablet 0 (MEDROL DOSEPACK) 4 mg package 8 tablet directions. 10/07/2017 aspirin 325 MG EC tablet Take 1 tablet 30 tablet 0 (325 mg 8 total) by mouth daily for 30 days. 09/07/2017 Discontinued HYDROcodone-acetaminophen Take 1-2 60 tablet 0 (NORCO 10-325) 10-325 mg tablets by 8 per tablet mouth every 6 (six) hours as needed for Pain for up to 15 days. Max Daily Amount: 8 tablets 09/17/2017 cephalexin (KEFLEX) 500 Take 1 30 capsule 0 MG capsule capsule (500 8 mg total) by mouth 3 (three) times daily for 10 days. 10/07/2017 meloxicam (MOBIC) 15 MG Take 1 tablet 30 tablet 0 tablet (15 mg total) 8 by mouth daily for 30 days. 09/22/2017 methocarbamol (ROBAXIN) Take 1 tablet 60 tablet 0 500 MG tablet (500 mg 8 total) by mouth 4 (four) times daily for 15 days. 09/24/2017 acetaminophen-codeine Take 1 tablet 20 tablet 0 (TYLENOL #3) 300-30 mg by mouth 8 per tablet every 4 (four) hours as needed for up to 10 days. Max Daily Amount: 6 tablets Active Problems Problem Noted Date Osteoarthritis of left hip 09/05/2017 Skin rash 08/03/2017 LAMIN (acute kidney injury) 08/03/2017 Urticaria 08/03/2017 Vancomycin adverse reaction, initial encounter 08/03/2017 H/O total hip arthroplasty, right 07/12/2017 Tobacco abuse 07/12/2017 Mild tetrahydrocannabinol (THC) abuse 07/12/2017 Resolved Problems Problem Noted Date Resolved Date Urticaria 08/02/2017 08/03/2017 Chest wall abscess 07/12/2017 08/03/2017 Physical deconditioning 07/12/2017 08/03/2017 Arthritis of right hip 06/20/2017 08/03/2017 Encounters Care Team Description Date Type Specialty Jack Ross MD Primary osteoarthritis of left hip (Primary Dx); Bleeding; Status post left hip replacement 09/15/2017 Emergency Emergency Medicine Jack Ross MD Bleeding (Primary Dx); Status post left hip replacement; Anemia, blood loss; Arthritis 09/14/2017 Emergency Emergency Medicine Danny Hernandez MD 09/06/2017 Anesthesia General Internal Medicine Event Danny Hernandez MD 09/06/2017 Anesthesia General Internal Medicine Event Jose Antonio Moreno MD ARTHROPLASTY,HIP 09/05/2017 Surgery Matias Rojas MD 09/05/2017 Anesthesia Event Jose Antonio Moreno MD 09/05/2017 [facility] General Internal Medicine - Encounter 09/07/2017 Jose Antonio Moreno MD 08/31/2017 Hospital Pre-Admission Testing Encounter Darshan Diane MD Infection of prosthetic hip joint, subsequent encounter (Primary Dx); Skin rash; Tobacco abuse; Urticaria 08/15/2017 Office Visit Cardiology Kat Baker MD Shamsee, Syed-Saleem Iqbal-Ahmed, MD Parikh, Sanket Suresh, MD Urticaria (Primary Dx); Rash; History of hip replacement, total, right; History of MRSA infection; H/O total hip arthroplasty, right; Skin rash; Tobacco abuse; Vancomycin adverse reaction, initial encounter 08/02/2017 [facility] General Internal Medicine - Encounter 08/06/2017 Kervin Harrell MD Vancomycin adverse reaction, initial encounter (Primary Dx); Chills; H/O total hip arthroplasty, right 07/28/2017 Emergency Emergency Medicine Sheldon Houston MD Acute febrile illness (Primary Dx); Nausea and vomiting, intractability of vomiting not specified, unspecified vomiting type; Shortness of breath; Generalized weakness; LAMIN (acute kidney injury) (HCC); H/O total hip arthroplasty, right; S/P PICC central line placement 07/26/2017 Emergency Emergency Medicine Yara Marques MD Lin, MD Gaudencio Morel Amna, MD H/O total hip arthroplasty, right (Primary Dx); Arthritis of right hip; Chest wall abscess; Mild tetrahydrocannabinol (THC) abuse; Physical deconditioning; Tobacco abuse; MRSA (methicillin resistant Staphylococcus aureus) infection 07/12/2017 [facility] General Internal Medicine - Encounter 07/18/2017 Jose Antonio Moreno MD ARTHROPLASTY,HIP 06/20/2017 Surgery Hitesh Yee MD 06/20/2017 Anesthesia Event Jose Antonio Moreno MD 06/20/2017 [facility] General Internal Medicine - Encounter 06/21/2017 Jose Antonio Moreno MD 06/13/2017 Hospital Pre-Admission Testing Encounter after 12/21/2016 Social History Date Tobacco Use Types Packs/Day Years Used Former Smoker 12 Smokeless Tobacco: Never Used Tobacco Cessation: Ready to Quit: No; Counseling Given: Yes Comments: quit june 2017 Alcohol Use Drinks/Week oz/Week Comments Yes 4 Glasses of 10.8 wine 12 Cans of beer 2 Shots of liquor Sex Assigned at Date Recorded Not on file Industry Job Start Date Occupation Not on file Not on file Not on file Travel End Travel History Travel Start No recent travel history available. Last Filed Vital Signs Time Taken Vital Sign Reading 09/15/2017 4:02 AM CDT Blood Pressure 123/72 09/15/2017 4:02 AM CDT Pulse 94 09/15/2017 4:02 AM CDT Temperature 36.6 C (97.9 F) 09/15/2017 4:02 AM CDT Respiratory Rate 18 09/15/2017 4:02 AM CDT Oxygen Saturation 97% 09/06/2017 10:18 PM CDT Inhaled Oxygen 21% Concentration 09/15/2017 4:02 AM CDT Weight 113.4 kg (250 lb) 09/15/2017 4:02 AM CDT Height 182.9 cm (6') 09/15/2017 4:02 AM CDT Body Mass Index 33.91 Plan of Treatment Health Maintenance Due Date Last Done Comments INFLUENZA VACCINE 11/05/2017 Implants Device Identifier Shelf Expiration Date Model / Serial / Lot Implanted Type Area Manufactur er 01/12/2022 [id number] / / [id number] Acetabular Shell Multi Hole Liner E Joints Right: Hip MEDACTA Sie 54mm [place] Implanted: Qty: 1 on 06/20/2017 by Jose Antonio Moreno MD 11/02/2021 01.32.6625 / / [id number] Cancellous Bone Screw. Flat Head Joints Right: Hip MEDACTA 6.5mm 25mm Length [place] Implanted: Qty: 1 on 06/20/2017 by Jose Antonio Moreno MD 11/14/2021 [id number] / / [id number] Flat Uhmwpe Liner E Head 36mm Flat. Joints Right: Hip MEDACTA Implanted: Qty: 1 on 06/20/2017 by Jose Antonio Major MD 01/07/2022 01.18.144 / / [id number] Lat. Femoral Stem Size 4 Lat Ordoñez Joints Right: Hip MEDACTA Coated [place] Implanted: Qty: 1 on 06/20/2017 by Jose Antonio Moreno MD 02/28/2022 01.29.209 / / [id number] Femoral Head 36mm Size M 0mm Joints Right: Hip MEDACTA Offset [place] Implanted: Qty: 1 on 06/20/2017 by Jose Antonio Moreno MD 09/29/2021 01.29.208 / / [id number] Femoral Head Left: Hip MEDACTA Implanted: Qty: 1 on 09/05/2017 by Jose Antonio Major MD 03/05/2021 01.32.6520 / / [id number] Cancellous Bone Screw Left: Hip MEDACTA Implanted: Qty: 1 on 09/05/2017 by Jose Antonio Major MD 10/05/2018 [id number] / / [id number] Acetabular Shell Multi Hole Left: Hip MEDAFOR Implanted: Qty: 1 on 09/05/2017 by Jose Antonio Maldonado MD 04/10/2022 [id number] / / [id number] Flat Uhmwpe Liner Left: Hip MEDACTA Implanted: Qty: 1 on 09/05/2017 by Jose Antonio Major MD 06/28/2020 01.18.144 / / [id number] Lat Femoral Stem Left: Hip MEDACTA Implanted: Qty: 1 on 09/05/2017 by Jose Antonio Major MD Procedures Comments Procedure Name Priority Date/Time Associated Diagnosis CBC W/PLT COUNT & AUTO STAT 09/15/2017 DIFFERENTIAL 8:04 AM CDT CBC W/PLT COUNT & AUTO STAT 09/15/2017 DIFFERENTIAL 8:04 AM CDT CBC W/PLT COUNT & AUTO STAT 09/14/2017 DIFFERENTIAL 9:46 AM CDT BASIC METABOLIC PANEL (7) STAT 09/14/2017 9:46 AM CDT CBC W/PLT COUNT & AUTO STAT 09/14/2017 DIFFERENTIAL 9:46 AM CDT PT/APTT STAT 09/14/2017 9:46 AM CDT BASIC METABOLIC PANEL (7) Routine 09/06/2017 5:10 AM CDT HEMOGLOBIN AND HEMATOCRIT Routine 09/06/2017 5:10 AM CDT XR PELVIS 1 OR 2 VIEWS STAT 09/05/2017 4:56 PM CDT FL ASSISTANT OCEANOGRAPHER IN OR 30 Routine 09/05/2017 MINUTE INCREMENTS 3:35 PM CDT HGB/HCT (H&H) - STAT LAB Routine 09/05/2017 3:15 PM CDT TISSUE EXAM AP Routine 09/05/2017 2:58 PM CDT PROCEDURE W/ C-ARM 09/05/2017 Arthritis of left hip 12:30 PM CDT Case Notes PRE-CERT RECEIVED DR. ROBERT 2 HOURS Special Needs (MEDACTA, C-ARM, TIVA WITH LONG ACTING SPINAL) ARTHROPLASTY,HIP 09/05/2017 Arthritis of left hip 12:30 PM CDT Case Notes PRE-CERT RECEIVED DR. ROBERT 2 HOURS Special Needs (MEDACTA, C-ARM, TIVA WITH LONG ACTING SPINAL) ANESTHESIA PERIPHERAL Routine 09/05/2017 BLOCK 10:48 AM CDT ANESTHESIA SPINAL BLOCK Routine 09/05/2017 10:46 AM CDT TRANSFUSION SERVICE 09/01/2017 REPORT - SCAN 5:53 PM CDT TYPE AND SCREEN, Routine 08/31/2017 AUTOMATED 1:34 PM CDT (CELLAVISION MANUAL DIFF) Routine 08/15/2017 Infection of prosthetic 11:20 AM CDT hip joint, subsequent encounter CBC W/PLT COUNT & AUTO Routine 08/15/2017 Infection of prosthetic DIFFERENTIAL 11:20 AM CDT hip joint, subsequent encounter COMPREHENSIVE METABOLIC Routine 08/15/2017 Infection of prosthetic PANEL 11:20 AM CDT hip joint, subsequent encounter CBC W/PLT COUNT & AUTO Routine 08/15/2017 Infection of prosthetic DIFFERENTIAL 11:20 AM CDT hip joint, subsequent encounter (CELLAVISION MANUAL DIFF) Routine 08/06/2017 5:29 AM CDT CBC W/PLT COUNT & AUTO Routine 08/06/2017 DIFFERENTIAL 5:29 AM CDT CBC W/PLT COUNT & AUTO Routine 08/06/2017 DIFFERENTIAL 5:29 AM CDT PHOSPHORUS Routine 08/06/2017 5:29 AM CDT MAGNESIUM Routine 08/06/2017 5:29 AM CDT COMPREHENSIVE METABOLIC Routine 08/06/2017 PANEL 5:29 AM CDT CALCIUM, IONIZED Routine 08/06/2017 5:29 AM CDT (CELLAVISION MANUAL DIFF) Routine 08/05/2017 4:24 AM CDT CBC W/PLT COUNT & AUTO Routine 08/05/2017 DIFFERENTIAL 4:24 AM CDT COMPREHENSIVE METABOLIC Routine 08/05/2017 PANEL 4:24 AM CDT CALCIUM, IONIZED Routine 08/05/2017 4:24 AM CDT CBC W/PLT COUNT & AUTO Routine 08/05/2017 DIFFERENTIAL 4:24 AM CDT PHOSPHORUS Routine 08/05/2017 4:24 AM CDT MAGNESIUM Routine 08/05/2017 4:24 AM CDT HEPATIC FUNCTION PANEL Routine 08/05/2017 4:24 AM CDT CBC W/PLT COUNT & AUTO Routine 08/04/2017 DIFFERENTIAL 4:39 AM CDT URIC ACID Routine 08/04/2017 4:39 AM CDT CREATINE KINASE (CK) Routine 08/04/2017 4:39 AM CDT B-TYPE NATRIURETIC FACTOR Routine 08/04/2017 (BNP) 4:39 AM CDT CBC W/PLT COUNT & AUTO Routine 08/04/2017 DIFFERENTIAL 4:39 AM CDT PHOSPHORUS Routine 08/04/2017 4:39 AM CDT MAGNESIUM Routine 08/04/2017 4:39 AM CDT HEPATIC FUNCTION PANEL Routine 08/04/2017 4:39 AM CDT BASIC METABOLIC PANEL (7) Routine 08/04/2017 4:39 AM CDT EOSINOPHIL SMEAR, URINE Routine 08/03/2017 11:27 PM CDT PROTEIN, RANDOM URINE Routine 08/03/2017 11:27 PM CDT CREATININE, RANDOM URINE Routine 08/03/2017 11:27 PM CDT SODIUM, RANDOM URINE Routine 08/03/2017 11:27 PM CDT US RENAL COMPLETE Routine 08/03/2017 9:58 PM CDT VANCOMYCIN LEVEL, RANDOM Routine 08/03/2017 10:27 AM CDT CBC W/PLT COUNT & AUTO Routine 08/03/2017 DIFFERENTIAL 4:54 AM CDT T4, FREE Routine 08/03/2017 4:54 AM CDT C-REACTIVE PROTEIN Routine 08/03/2017 4:54 AM CDT TSH/FREE T4 IF INDICATED Routine 08/03/2017 4:54 AM CDT CBC W/PLT COUNT & AUTO Routine 08/03/2017 DIFFERENTIAL 4:54 AM CDT HEMOGLOBIN A1C Routine 08/03/2017 4:54 AM CDT LIPID PANEL Routine 08/03/2017 4:54 AM CDT PHOSPHORUS Routine 08/03/2017 4:54 AM CDT MAGNESIUM Routine 08/03/2017 4:54 AM CDT HEPATIC FUNCTION PANEL Routine 08/03/2017 4:54 AM CDT BASIC METABOLIC PANEL (7) Routine 08/03/2017 4:54 AM CDT URINALYSIS W/ MICROSCOPIC STAT 08/02/2017 11:34 PM CDT (CELLAVISION MANUAL DIFF) STAT 08/02/2017 10:13 PM CDT CBC W/PLT COUNT & AUTO STAT 08/02/2017 DIFFERENTIAL 10:13 PM CDT BASIC METABOLIC PANEL (7) STAT 08/02/2017 10:13 PM CDT HEPATIC FUNCTION PANEL STAT 08/02/2017 10:13 PM CDT CBC W/PLT COUNT & AUTO STAT 08/02/2017 DIFFERENTIAL 10:13 PM CDT (CELLAVISION MANUAL DIFF) STAT 07/28/2017 6:19 PM CDT CBC W/PLT COUNT & AUTO STAT 07/28/2017 DIFFERENTIAL 6:19 PM CDT COMPREHENSIVE METABOLIC STAT 07/28/2017 PANEL 6:19 PM CDT CBC W/PLT COUNT & AUTO STAT 07/28/2017 DIFFERENTIAL 6:19 PM CDT POCT OCCULT BLOOD STAT 07/26/2017 STOOL(GUIAC) 2:44 PM CDT POCT-LACTIC ACID, VENOUS Routine 07/26/2017 1:26 PM CDT XR CHEST 1 VIEW STAT 07/26/2017 PORTABLE/BEDSIDE 1:18 PM CDT CBC W/PLT COUNT & AUTO STAT 07/26/2017 DIFFERENTIAL 1:10 PM CDT URINALYSIS W/ MICROSCOPIC STAT 07/26/2017 1:10 PM CDT CBC W/PLT COUNT & AUTO STAT 07/26/2017 DIFFERENTIAL 1:10 PM CDT PROTHROMBIN TIME/INR STAT 07/26/2017 1:10 PM CDT MAGNESIUM STAT 07/26/2017 1:10 PM CDT HEPATIC FUNCTION PANEL STAT 07/26/2017 1:10 PM CDT BASIC METABOLIC PANEL (7) STAT 07/26/2017 1:10 PM CDT RAPID INFLUENZA A&B STAT 07/26/2017 SCREEN 1:10 PM CDT URINE CULTURE STAT 07/26/2017 1:10 PM CDT BLOOD CULTURE STAT 07/26/2017 1:10 PM CDT MISCELLANEOUS LAB ORDER Routine 07/26/2017 1:09 PM CDT BLOOD CULTURE STAT 07/26/2017 1:09 PM CDT VANCOMYCIN LEVEL, TROUGH Timed 07/17/2017 12:42 PM CDT VANCOMYCIN LEVEL, TROUGH Timed 07/16/2017 4:30 AM CDT BASIC METABOLIC PANEL (7) Routine 07/14/2017 5:12 AM CDT VANCOMYCIN LEVEL, TROUGH Timed 07/13/2017 7:44 PM CDT XR CHEST 1 VIEW STAT 07/13/2017 PORTABLE/BEDSIDE 4:40 PM CDT BODY FLUID CELL COUNT Routine 07/13/2017 WITH DIFFERENTIAL 11:46 AM CDT BODY FLUID CULTURE + GRAM Routine 07/13/2017 STAIN 11:45 AM CDT FL ASPIRATION HIP RIGHT STAT 07/13/2017 10:45 AM CDT PROTHROMBIN TIME/INR Routine 07/13/2017 6:00 AM CDT HEPATIC FUNCTION PANEL Routine 07/13/2017 6:00 AM CDT C-REACTIVE PROTEIN Routine 07/13/2017 6:00 AM CDT RAPID DRUG SCREEN, URINE Routine 07/12/2017 5:20 PM CDT BLOOD CULTURE Routine 07/12/2017 4:47 PM CDT CBC (HEMOGRAM ONLY) Routine 07/12/2017 4:44 PM CDT BASIC METABOLIC PANEL (7) Routine 07/12/2017 4:44 PM CDT XR PELVIS 1 OR 2 VIEWS STAT 07/12/2017 3:37 PM CDT RHYTHM STRIP - SCAN 06/22/2017 3:12 PM CDT HEMOGLOBIN AND HEMATOCRIT Routine 06/21/2017 4:38 AM CDT BASIC METABOLIC PANEL (7) Routine 06/21/2017 4:38 AM CDT XR PELVIS 1 OR 2 VIEWS STAT 06/20/2017 3:47 PM CDT FL ASSISTANT OCEANOGRAPHER IN OR 30 Routine 06/20/2017 MINUTE INCREMENTS 2:30 PM CDT TISSUE EXAM AP Routine 06/20/2017 1:53 PM CDT PROCEDURE W/ C-ARM 06/20/2017 Arthritis of right hip 12:24 PM CDT Special Needs (TIVA W/LONG ACTING SPINAL, MEDACTA, C-ARM) ARTHROPLASTY,HIP 06/20/2017 Arthritis of right hip 12:24 PM CDT Special Needs (TIVA W/LONG ACTING SPINAL, MEDACTA, C-ARM) ANESTHESIA SPINAL BLOCK Routine 06/20/2017 11:59 AM CDT TRANSFUSION SERVICE 06/14/2017 REPORT - SCAN 5:46 PM CDT TYPE AND SCREEN, Routine 06/13/2017 AUTOMATED 1:01 PM CDT PLATELET COUNT Routine 06/13/2017 1:01 PM CDT HEMOGLOBIN Routine 06/13/2017 1:01 PM CDT after 12/21/2016 Results * CBC with platelet count + automated diff (09/15/2017 8:04 AM CDT) Only the most recent of 10 results within the time period is included. WBC 8.8 3.5 - 10.5 K/L [facility] RBC 3.36 (L) 4.63 - 6.08 M/L [facility] Hemoglobin 9.8 (L) 13.7 - 17.5 GM/DL [facility] Hematocrit 30.5 (L) 40.1 - 51.0 % [facility] MCV 90.8 79.0 - 92.2 fL [facility] MCH 29.2 25.7 - 32.2 pg [facility] MCHC 32.1 (L) 32.3 - 36.5 GM/DL [facility] RDW 13.4 11.6 - 14.4 % [facility] Platelets 416 150 - 450 K/CU MM [facility] MPV 8.8 (L) 9.4 - 12.4 fL [facility] nRBC 0 0 - 0 /100 WBC [facility] % Neutros 75 % [facility] % Lymphs 13 % [facility] % Monos 8 % [facility] % Eos 3 % [facility] % Baso 1 % [facility] # Neutros 6.64 (H) 1.78 - 5.38 K/L [facility] # Lymphs 1.11 (L) 1.32 - 3.57 K/L [facility] # Monos 0.72 0.30 - 0.82 K/L [facility] # Eos 0.24 0.04 - 0.54 K/L [facility] # Baso 0.07 0.01 - 0.08 K/L [facility] Immature 1 0 - 1 % [facility] Granulocytes-Relative [facility] Specimen Blood - Arm, Left Performing Organization Address City/State/Zipcode Phone Number [facility] [address] [place] [address] MEDICAL [facility]ENTER * PT/aPTT (09/14/2017 9:46 AM CDT) Protime 15.0 (H) 11.7 - 14.7 seconds [facility] INR 1.2 <=5.9 [facility] PTT 32.5 22.5 - 36.0 seconds [facility] Specimen Blood Narrative Performed At RECOMMENDED COUMADIN/WARFARIN INR THERAPY RANGES [facility] STANDARD DOSE: 2.0 - 3.0 Includes: PROPHYLAXIS for venous thrombosis, [facility] systemic embolization; TREATMENT for venous thrombosis and/or pulmonary embolus. HIGH RISK: Target INR is 2.5-3.5 for patients with mechanical heart valves. Performing Organization Address City/[facility] Phone Number [facility] [phone] [place], [place] [phone] [facility] * Basic Metabolic Panel (09/14/2017 9:46 AM CDT) Only the most recent of 9 results within the time period is included. Sodium 132 (L) 136 - 145 meq/L [facility] Potassium 3.9 3.5 - 5.1 meq/L [facility] Chloride 99 98 - 107 meq/L [facility] CO2 22 22 - 29 meq/L [facility] BUN 16 7 - 21 mg/dL [facility] Creatinine 0.94 0.57 - 1.25 mg/dL [facility] Glucose 126 (H) 70 - 105 mg/dL [facility] Calcium 10.0 8.4 - 10.2 mg/dL [facility] EGFR 85Comment: ESTIMATED GFR IS mL/min/1.73 sq m [facility] NOT ACCURATE CREATININE [facility] CLEARANCE IN PREDICTING GLOMERULAR FILTRATION RATE. ESTIMATED GFR IS NOT APPLICABLE FOR DIALYSIS PATIENTS. Specimen Blood Performing Organization Address [facility] Cent[facility]ode Phone Number [facility] [address] [place] [address] [facility] * Hemoglobin and hematocrit (09/06/2017 5:10 AM CDT) Only the most recent of 2 results within the time period is included. Hemoglobin 10.0 (L) 13.7 - 17.5 GM/DL [facility] Hematocrit 31.0 (L) 40.1 - 51.0 % [facility] Specimen Blood - Arm, Left Performing Organization Address City/[facility] Cent[facility]ode Phone Number [place] [phone] [place] [address] [facility] * XR pelvis 1 or 2 views (09/05/2017 4:56 PM CDT) Only the most recent of 3 results within the time period is included. Narrative Performed At FINAL REPORT [facility] INDICATION: Status post left total hip replacement. COMPARISON: July 12, 2017 TECHNIQUE: Pelvis radiograph two views. FINDINGS / IMPRESSION: There is interval left total hip replacement with grossly aligned components. No fracture demonstrated. As before there is a right total hip replacement. Signed: Fareed Salomon MD Report Verified Date/Time:09/05/2017 17:21:49 Reading Location: [address] Consult Reading Room Procedure Note Interface, [...] Report Verified Date/Time: 09/05/2017 17:21:49 Reading Location: [facility] C0[facility] Consult Reading Room Performing Organization Address City/State/Zipcode Phone Number [facility] * [place] radar technician in or 30 minute increments (09/05/2017 3:35 PM CDT) Only the most recent of 2 results within the time period is included. Narrative Performed At FINAL REPORT [facility] Fluoroscopy 3 views intraoperative 09/05/2017 at 1220. CLINICAL HISTORY: Instrument localization COMPARISON: None available IMPRESSION: Please correlate imaging report findings with the procedure note prepared by Dr. Moreno, as an intra-procedure imaging consultation was not requested. Reported fluoroscopy time: 89.0 seconds. Signed: Dario Brantley MD Report Verified Date/Time:09/06/2017 07:48:53 Reading Location: [facility] [id number] Neuro Reading Room Procedure Note Interface, External [...] Report Verified Date/Time: 09/06/2017 07:48:53 Reading Location: [facility] C0[facility] Neuro Reading Room Performing Organization Address City/[facility]/Zipcode Phone Number [facility] * HGB/HCT (H&H)-Stat Lab (09/05/2017 3:15 PM CDT) Hemoglobin 11.3 (L) 13.0 - 16.8 g/dL [facility] Hematocrit 33.0 (L) 40.0 - 50.0 % [facility] Specimen Blood - Arm, Left Performing Organization Address [facility]/Physicians Interactive[employer] Phone Number [facility] [phone] [place] [address] * Tissue Exam (09/05/2017 2:58 PM CDT) Only the most recent of 2 results within the time period is included. Case Report Surgical Pathology [facility] Case: [id number] Authorizing Provider:Jose Antonio Moreno Collected: 09/05/2017 Fabio Hou MD Ordering Location: [facility] Received: 09/06/2017 0810 SERVICES Pathologist: Diana Singleton Specimens: A) - Bone, FEMORAL CANAL B) - Femoral Head,Left Hip DIAGNOSIS A. BONE, FEMORAL CANAL: [facility] - BONE MARROW AND BLOOD WITH [facility] MILD REACTIVE CHANGES - NEGATIVE FOR MALIGNANCY B. FEMORAL HEAD, LEFT HIP, EXCISION: - DEGENERATIVE JOINT DISEASE (OSTEOARTHRITIS) KD/pl Signing Pathologist Direct Phone Line: [phone] CPT Code(s) 61482 x2; 05524 x4 [facility] CLINICAL HISTORY Arthritis of left hip [facility] SPECIMEN SOURCE A. Femoral canal. B. Left [facility] femoral hip [facility] GROSS DESCRIPTION Specimen is received in two [facility] containers both labeled with [facility] the patient's information. Specimen A: Labeled "femoral [...] CG/ew MICROSCOPIC DESCRIPTION A and B: Performed [facility] Specimen Tissue - Bone Performing Organization Address City/State/Zipcode Phone Number [facility] [address] [place] [address] [facility] * ANESTHESIA PERIPHERAL BLOCK (09/05/2017 10:48 AM CDT) Narrative Performed At Dylan Cid MD 09/05/2017 10:48 AM Peripheral [...] supine Prep: ChloraPrep Patient monitoring: heart rate, residential monitor and continuous pulse ox Anesthesia block type: [...] supine Prep: ChloraPrep Patient monitoring: heart rate, residential monitor and continuous pulse ox Anesthesia block type: [...] injection. * ANESTHESIA SPINAL BLOCK (09/05/2017 10:46 AM CDT) Only the most recent of 2 results within the time period is included. Narrative Performed At Dylan Cid MD 09/05/2017 10:46 AM Spinal [...] sitting Prep: Betadine Patient monitoring: heart rate, residential monitor and continuous pulse ox Approach: midline Location: [...] sitting Prep: Betadine Patient monitoring: heart rate, residential monitor and continuous pulse ox Approach: midline Location: L3-4 Injection technique: single-shot Needle Needle type: daniel. Needle gauge: 25 G Needle length: 10 cm Assessment Sensory level: T10 Events: cerebrospinal fluid Additional Notes Patient tolerated procedure well. No pain throughout procedure or injection. * TRANSFUSION SERVICE REPORT - SCAN (09/01/2017 5:53 PM CDT) Only the most recent of 2 results within the time period is included. Narrative Performed At * Type and screen, automated (08/31/2017 1:34 PM CDT) Only the most recent of 2 results within the time period is included. ABO/RH AUTOMATED (BEAKER) AB POSITIVE [facility] Ab Scrn NEGATIVE [facility] Specimen Blood Performing Organization Address City/State/Zipcode Phone Number [facility] [address] [place] [address] MEDICAL CENTER * Manual Differential (08/15/2017 11:20 AM CDT) Only the most recent of 5 results within the time period is included. % Neutros 61 % [facility] % Lymphs 7 % [facility] % Monos 14 % [facility] % Eos 19 % [facility] # Neutros 5.98 (H) 1.78 - 5.38 K/ul [facility] # Lymphs 0.69 (L) 1.32 - 3.57 K/ul [facility] # Monos 1.37 (H) 0.30 - 0.82 K/uL [facility] # Eos 1.86 (H) 0.04 - 0.54 K/uL [facility] Total Counted 100 [facility] WBC Morphology Normal [facility] Platelet Morphology Normal [facility] Anisocytosis 1+ few [facility] Microcytes 1+ few [facility] Artifact Present [facility] Platelet Conc Adequate [facility] Specimen Blood Narrative Performed At Received comment: [facility] User comments: [facility] Slide comments: Performing Organization Address City/State/Zipcode Phone Number [facility] [address] [place] [address] [facility] * Comprehensive metabolic panel (08/15/2017 11:20 AM CDT) Only the most recent of 4 results within the time period is included. Protein, Total 7.1 6.0 - 8.3 gm/dL [facility] Albumin 4.1 3.5 - 5.0 g/dL [facility] Alkaline Phosphatase 71 40 - 150 U/L [facility] Total Bilirubin 1.0 0.2 - 1.2 mg/dL [facility] Sodium 137 136 - 145 meq/L [facility] Potassium 4.3 3.5 - 5.1 meq/L [facility] Chloride 105 98 - 107 meq/L [facility] CO2 22 22 - 29 meq/L [facility] BUN 25 (H) 7 - 21 mg/dL [facility] Creatinine 1.08 0.57 - 1.25 mg/dL [facility] Glucose 112 (H) 70 - 105 mg/dL [facility] Calcium 9.0 8.4 - 10.2 mg/dL [facility] AST 17 5 - 34 U/L [facility] ALT 20 6 - 55 U/L [facility] EGFR 72Comment: ESTIMATED GFR IS mL/min/1.73 sq m [facility] NOT ACCURATE CREATININE [facility] CLEARANCE IN PREDICTING GLOMERULAR FILTRATION RATE. ESTIMATED GFR IS NOT APPLICABLE FOR DIALYSIS PATIENTS. Specimen Blood Performing Organization Address City/[facility] [place] [address] [phone] * Calcium, Ionized (08/06/2017 5:29 AM CDT) Only the most recent of 2 results within the time period is included. Calcium, Ion 1.03 (L) 1.12 - 1.27 mmol/L [facility] pH, Blood 7.41 [facility] Specimen Blood Performing Organization Address City/[facility] [place] [address] [phone] [place] [address] * Phosphorus (08/06/2017 5:29 AM CDT) Only the most recent of 4 results within the time period is included. Phosphorus 3.3Comment: Specimen slightly 2.3 - 4.7 mg/dL [facility] hemolyzed [facility] Specimen Blood Performing Organization Address City/[facility]/Zipcode Phone Number [address] [address] [facility] * Magnesium (08/06/2017 5:29 AM CDT) Only the most recent of 5 results within the time period is included. Magnesium 2.3Comment: Specimen slightly 1.6 - 2.6 mg/dL [facility] hemolyzed [facility] Specimen Blood Performing Organization Address [facility] Centerconc Phone Number [address] * Hepatic function panel (08/05/2017 4:24 AM CDT) Only the most recent of 6 results within the time period is included. Protein, Total 5.5 (L) 6.0 - 8.3 gm/dL [facility] Albumin 3.3 (L) 3.5 - 5.0 g/dL [facility] Total Bilirubin 0.4 0.2 - 1.2 mg/dL [facility] Bilirubin, Direct 0.1 0.1 - 0.5 mg/dL [facility] Alkaline Phosphatase 71 40 - 150 U/L [facility] AST 14 5 - 34 U/L [facility] ALT 30 6 - 55 U/L [facility] Specimen Blood - Arm, Left Performing Organization Address [facility] Phone Number [address] * Uric acid (08/04/2017 4:39 AM CDT) Uric Acid 5.2 2.6 - 7.2 mg/dL [facility] Specimen Blood - Arm, Right Performing Organization Address [facility] Phone Number [address] * B-type Natriuretic Factor (BNP) (08/04/2017 4:39 AM CDT) BNP 217 (H) 0 - 100 pg/mL [facility] Specimen Blood - Arm, Right Performing Organization Address [facility] Centercode Phone Number [facility] [address] [address] [facility] * Creatine Kinase (CK) (08/04/2017 4:39 AM CDT) Total CK 25 (L) 29 - 200 U/L [facility] Specimen Blood - Arm, Right Performing Organization Address [facility] [place] [address] [phone] [place] [address] * Sodium, random urine (08/03/2017 11:27 PM CDT) Sodium Urine 89 meq/L [facility] Specimen Urine Narrative Performed At Reference Range: No Normals [facility] Performing Organization Address [facility] Phone Number [address] [address] [phone] [address] * Protein, random urine (08/03/2017 11:27 PM CDT) Protein, Urine <7 0 - 14 mg/dL [facility] Specimen Urine Performing Organization Address [facility] Phone Number [place] [phone] [place] [address] * Creatinine, random urine (08/03/2017 11:27 PM CDT) Creatinine, Ur 80.1 mg/dL [facility] Specimen Urine Narrative Performed At Reference Range: No Normals [facility] Performing Organization Address City/[facility] Cent[facility]ode Phone Number [address] [address] [phone] [place] [address] * Eosinophil smear (08/03/2017 11:27 PM CDT) Eosinophil Smear No EOS seen No EOS seen [facility] Specimen Urine Performing Organization Address [facility] Centercode Phone Number [address] [address] [facility] * US renal complete (08/03/2017 9:58 PM CDT) Narrative Performed At FINAL REPORT [facility] Comparison examination: None Right kidney : 12.6 [...] MD Report Verified Date/Time:08/03/2017 22:14:52 Reading Location: [address] Ortho Consult Reading Room Procedure Note [...] Report Verified Date/Time: 08/03/2017 22:14:52 Reading Location: [facility] C013X Ortho Consult Reading Room Performing Organization Address City/State/Zipcode Phone Number [facility] * Vancomycin level, random (08/03/2017 10:27 AM CDT) Vancomycin Rm <1.1 ug/mL [facility] Specimen Blood Narrative Performed At Reference Range: No Normals [facility] Performing Organization Address City/[facility]/Zipcode Phone Number [address] * TSH/Free T4 If Indicated (08/03/2017 4:54 AM CDT) TSH 0.30 (L) 0.35 - 4.94 uIU/mL [facility] Specimen Blood - Arm, Right Performing Organization Address [facility] Cent[facility]ode Phone Number [address] * C-Reactive Protein (08/03/2017 4:54 AM CDT) Only the most recent of 2 results within the time period is included. CRP 0.48 0.00 - 0.50 mg/dL [facility] Specimen Blood - Arm, Right Performing Organization Address [facility] Phone Number [address] * T4, free (08/03/2017 4:54 AM CDT) Free T4 0.94 0.70 - 1.48 ng/dL [facility] Specimen Blood - Arm, Right Performing Organization Address [facility] Phone Number [address] * Hemoglobin A1c (08/03/2017 4:54 AM CDT) Hemoglobin A1C 5.8 4.3 - 6.1 % [facility] Specimen Blood - Arm, Right Performing Organization Address [facility] Cent[facility]ode Phone Number [address] * Lipid panel (08/03/2017 4:54 AM CDT) Triglycerides 130 mg/dL [facility] Cholesterol 169 mg/dL [facility] HDL 32 mg/dL [facility] LDL Calculated 111 mg/dL [facility] Specimen Blood - Arm, Right Narrative Performed At Triglyceride Reference Range: [facility] Low Risk <150 [facility] [id number] High Risk 200-499 Very High Risk>=500 Cholesterol Reference Range: Low Risk <200 [id number] High Risk>240 HDL Cholesterol Reference Range: Low Risk >=60 High Risk <40 LDL Cholesterol Reference Range: Optimal<100 Near [id number] [id number] Very High >=190 Performing Organization Address [facility] Phone Number [address] [address] [facility] * Urinalysis w/Microscopic (08/02/2017 11:34 PM CDT) Only the most recent of 2 results within the time period is included. Color, UA Yellow [facility] Clarity, UA Clear [facility] Specific [place], UA 1.015 1.001 - 1.035 [facility] pH, UA 6.0 5.0 - 8.0 [facility] Protein, UA Negative Negative [facility] Glucose, UA Negative Negative [facility] Ketones, UA Negative Negative [facility] Bilirubin, UA Negative Negative [facility] Blood, UA Negative Negative [facility] Nitrite, UA Negative Negative [facility] Leukocytes, UA Negative Negative [facility] Urobilinogen, UA 0.2 0.2 - 1.0 mg/dL [facility] RBC, UA <1 /HPF [facility] WBC, UA 1 /HPF [facility] Specimen Source Urine, Clean Catch [facility] Specimen Urine - Urine, Clean Catch Performing Organization Address City/[facility]ode Phone Number [facility] [address] [place] [address] [facility] * POCT OCCULT BLOOD STOOL (IA) [facility] ED & CEC'S ONLY (07/26/2017 2:44 PM CDT) Fecal Occult Blood Negative Negative ([facility]), POC QC Result Acceptable?, QC Acceptable POC FOB Card Lot #, POC [id number] [id number] 11-19 FOB Developer Lot # [id number] 2020-07 Specimen Stool * POC-Lactic Acid, Venous (07/26/2017 1:26 PM CDT) POC-Lactic Acid, Venous 0.6 (L)Comment: TESTED AT 0.9 - 1.7 mmol/L [facility] [address] [place] [id number] Specimen Blood Performing Organization Address City/State/Zipcode Phone Number [facility] [address] [place] [address] [phone] [place] [address] * XR chest 1 view portable / bedside (07/26/2017 1:18 PM CDT) Only the most recent of 2 results within the time period is included. Narrative Performed At FINAL REPORT [facility] TECHNIQUE: Frontal chest radiographs dated 07/26/2017. CLINICAL HISTORY: Fever, emesis, COMPARISON STUDY: Chest radiograph dated 07/13/2017 IMPRESSION: Left-sided PICC is unchanged. Lungs are clear. No pleural effusion or pneumothorax. Cardiomediastinal silhouette is normal in size. No pulmonary edema. Bones are normal in appearance. Signed: Clari Taylor MD Report Verified Date/Time:07/26/2017 13:30:26 Reading Location: [facility] Radiology Reading Room Procedure Note Interface, External [...] Report Verified Date/Time: 07/26/2017 13:30:26 Reading Location: [facility] Radiology Reading Room Performing Organization Address City/State/Zipcode Phone Number [facility] * Blood culture #2 (07/26/2017 1:10 PM CDT) Only the most recent of 3 results within the time period is included. Result No growth in 5 days [facility] Specimen Blood - Arm, Right Performing Organization Address [facility] Cent[facility]ode Phone Number [address] [address] [facility] * Prothrombin time/INR (07/26/2017 1:10 PM CDT) Only the most recent of 2 results within the time period is included. Protime 14.9 (H) 11.7 - 14.7 seconds [facility] INR 1.2 <=5.9 [facility] Specimen Blood - Arm, Left Narrative Performed At RECOMMENDED COUMADIN/WARFARIN INR THERAPY RANGES [facility] STANDARD DOSE: 2.0 - 3.0 Includes: PROPHYLAXIS for venous thrombosis, [facility] systemic embolization; TREATMENT for venous thrombosis and/or pulmonary embolus. HIGH RISK: Target INR is 2.5-3.5 for patients with mechanical heart valves. Performing Organization Address [facility] Centercode Phone Number [place] [phone] [place] [address] [facility] * Rapid influenza A&B screen (07/26/2017 1:10 PM CDT) Rapid Influenza A Antigen NEGATIVE LABORATORY FINDING Negative, Inconclusive [facility] Rapid influenza B Antigen NEGATIVE LABORATORY FINDING Negative, Inconclusive [facility] Specimen Nasal - Nasal Mucosa Performing Organization Address [facility]ode Phone Number [facility] [address] [place] [address] [facility] * Urine culture (07/26/2017 1:10 PM CDT) Result No growth [facility] Specimen Urine - Urine, Voided Performing Organization Address [facility]/Zipcode Phone Number [place] [phone] [place] [address] [facility] * BCID (07/26/2017 1:09 PM CDT) Scan Result [facility] Specimen Blood Narrative Performed At [facility] Result comments: [facility] Coagulase Negative Staphylococcus Species (CoNS) DETECTED, Methicillin Susceptible First line therapy: cefazolin, nafcillin (nafcillin preferred for Central Nervous System infection) Coagulase Negative Staphylococcus (CoNS) DETECTED mecA NOT DETECTED Other organisms and resistance markers not contained in this PCR panel cannot be excluded and follow-up of traditional culture results is required. This sample was tested at the [facility] Clinical Microbiology Laboratory using the [employer] Blood Culture ID Panel. This test is FDA cleared for in vitro diagnostic use and has been verified and approved by the [facility] Clinical Microbiology laboratory for clinical use. Reference Range: Not Detected Performing Organization Address [facility] Centercode Phone Number [facility] [address] [place] [address] [facility] * Vancomycin level, trough (07/17/2017 12:42 PM CDT) Only the most recent of 3 results within the time period is included. Vancomycin Tr 18.5 10.0 - 20.0 ug/mL [facility] Specimen Blood - Central Venous Line Narrative Performed At Please obtain vancomycin trough 30 min prior to scheduled dose. Hold dose if [facility] level >20 [facility] Performing Organization Address [facility]/Zipcode Phone Number [place] [phone] [place] [address] [facility] * Body fluid cell count with differential (07/13/2017 11:46 AM CDT) Appearance Bloody (A) Clear [facility] Color Red (A) Colorless, Straw [facility] RBCs 118,000 (H) <=1 /cu mm [facility] Adjusted WBC Count 2,824 (H) <=5 /cu mm [facility] Lining Cells 0 <=1 /cu mm [facility] % Segs 4 % [facility] % Lymphs 26 % [facility] % Monos 63 % [facility] % Eos 7 % [facility] % Baso 0 % [facility] Container Body Fluid EDTA Tube [facility] Specimen Aspirate - Hip, Right Performing Organization Address City/[facility]ercode Phone Number [facility] [address] [place] [address] [facility] * Body fluid culture + gram stain (07/13/2017 11:45 AM CDT) Result No growth [facility] Gram Stain Result 1+ WBCs [facility] Gram Stain Result No organisms seen [facility] Specimen Body Fluid - Hip, Right Performing Organization Address City/[facility]ode Phone Number [facility] [address] [place] [address] [facility] * FL aspiration hip right (07/13/2017 10:45 AM CDT) Narrative Performed At FINAL REPORT [facility] Right hip aspiration History: Rule out infection [...] MD Report Verified Date/Time:07/19/2017 14:12:50 Reading Location: [facility] B1 C013X Ortho Consult Reading Room Procedure Note Interface, [...] Report Verified Date/Time: 07/19/2017 14:12:50 Reading Location: [facility] B1 C013X Ortho Consult Reading Room Performing Organization Address City/State/Zipcode Phone Number [facility] * Rapid drug screen, urine (07/12/2017 5:20 PM CDT) Barbiturate Screen Negative Negative [facility] Benzodiazepine Screen Negative Negative [facility] Cocaine (Metab.) Screen Negative Negative [facility] Methadone Screen Negative Negative [facility] Opiate Screen Negative Negative [facility] Cannabinoid Screen Positive (A) Negative [facility] Amph/Methamph Screen Negative Negative [facility] Phencyclidine Screen Negative Negative [facility] Oxycodone Screen Negative Negative [facility] Specimen Urine Narrative Performed At [facility] Cocaine 300 ng/mL [facility] Qhosuccmkbo88 ng/mL Ctnyttrcdcvovx188 ng/mL Barbiturate 200 ng/mL Ugssxfhayfmkj52 ng/mL Kucbeh238 ng/mL Methadone 300 ng/mL Amphetamine/ 1000 ng/mL Methamphetamine Oxycodone 300 ng/mL This assay provides an unconfirmed qualitative test result for the clinical management of patients in emergency situations. Chain of custody not maintained. Some hvtp-lxp-rsbdmjg medications, as well as adulterants, may cause inaccurate results. Clinical correlation should be applied. A more comprehensive drug screen or confirmation of a detected drug may be performed upon request. Performing Organization Address City/[facility]ode Phone Number [address] [address] [facility] * CBC (Hemogram only) (07/12/2017 4:44 PM CDT) WBC 5.9 3.5 - 10.5 K/L [facility] RBC 3.81 (L) 4.63 - 6.08 M/L [facility] Hemoglobin 11.4 (L) 13.7 - 17.5 GM/DL [facility] Hematocrit 35.3 (L) 40.1 - 51.0 % [facility] MCV 92.7 (H) 79.0 - 92.2 fL [facility] MCH 29.9 25.7 - 32.2 pg [facility] MCHC 32.3 32.3 - 36.5 GM/DL [facility] RDW 12.0 11.6 - 14.4 % [facility] Platelets 326 150 - 450 K/CU MM [facility] MPV 9.4 9.4 - 12.4 fL [facility] nRBC 0 0 - 0 /100 WBC [facility] Specimen Blood Performing Organization Address City/[facility]/Zipcode Phone Number [place] [phone] [place] [address] [facility] * RHYTHM STRIP - SCAN (06/22/2017 3:12 PM CDT) Narrative Performed At * Platelet count (06/13/2017 1:01 PM CDT) Platelets 210 150 - 450 K/CU MM [facility] Specimen Blood Performing Organization Address City/[facility]/Zipcode Phone Number [facility] [address] [place] [address] [facility] * Hemoglobin (06/13/2017 1:01 PM CDT) Hemoglobin 15.2 13.7 - 17.5 GM/DL [facility] Specimen Blood Performing Organization Address City/[facility]/Zipcode Phone Number [facility] [address] [place], [place] [id number] [facility] after 12/21/2016 Insurance Payer Benefit Subscriber ID Type Phone Address Plan / Group [employer] xxxxxxxxxxx [employer] Advance Directives For more information, please contact: [address] [address] Date Inactivated Comments Code Status Date Activated 09/07/2017 1:47 PM Full Code 09/05/2017 9:17 AM This code status was determined by: Patient 08/06/2017 4:10 PM Full Code 08/03/2017 4:20 AM This code status was determined by: Patient 07/26/2017 5:30 PM Full Code 07/26/2017 1:04 PM This code status was determined by: Patient 07/18/2017 5:13 PM Full Code 07/12/2017 1:33 PM This code status was determined by: Patient 06/21/2017 7:28 PM Full Code 06/20/2017 6:46 PM This code status was determined by: Patient
[2017-12-22] MEDS ORDERED: BACITRACIN-POL3.5 GM OP (18:10)
[2017-12-22 18:13] VITALS: BP 148/86
== END 2017-12-22 18:15 | disposition home or self-care (01) ==
LOC: FSED 17:28
DX: H10.022 Other mucopurulent conjunctivitis, left eye (principal)
CPT/HCPCS: 99283

== ENCOUNTER 2018-04-11 12:23 | Emergency (ER) | payer OTHER ==
[~2018-04-11] VITALS: Ht 185.4 cm; Wt 113.4 kg
[~2018-04-11 12:23] MED LIST changes: +BACITRACIN-POL3.5 GM OP
--- OUTSIDE RECORDS SUMMARY | 2018-04-11 12:26 | XMS REPORT | Clinical Summary ---
Author Author [facility] Address Unknown Phone Unavailable Care Team Providers Care Ethanol Operator Name Role Phone Sharpless PCP Allergies Comments [...] 08/03/2017 Discontinued VANCOMYCIN/0.9 % SOD Inject 250 [id number] mL 0 CHLORIDE (VANCOMYCIN IN mLs (1,500 [...] General Internal Medicine Event Jose Antonio Moreno Jr., MD ARTHROPLASTY,HIP 09/05/2017 Surgery Matias Rojas MD 09/05/2017 Anesthesia Event Jose Antonio Moreno Jr., MD 09/05/2017 [facility] General Internal Medicine - Encounter 09/07/2017 Jose Antonio Mroeno Jr., MD 08/31/2017 Hospital Pre-Admission Testing Encounter Darshan [...] abuse; Vancomycin adverse reaction, initial encounter 08/02/2017 [facility] General Internal Medicine - Encounter 08/06/2017 Krevin Harrell MD Vancomycin adverse reaction, initial encounter [...] Medicine Yara Marques MD Lin, MD Gaudencio Morel, MD Randi H/O total hip arthroplasty, right (Primary Dx); Arthritis of right hip; Chest wall abscess; Mild tetrahydrocannabinol (THC) abuse; Physical deconditioning; Tobacco abuse; MRSA (methicillin resistant Staphylococcus aureus) infection 07/12/2017 [facility] General Internal Medicine - Encounter 07/18/2017 Jose Antonio Moreno Jr., MD ARTHROPLASTY,HIP 06/20/2017 Surgery Hitesh Yee MD 06/20/2017 Anesthesia Event Jose Antonio Moreno Jr., MD 06/20/2017 [facility] General Internal Medicine - Encounter 06/21/2017 Jose Antonio Moreno Jr., MD 06/13/2017 Hospital Pre-Admission Testing Encounter after 04/10/2017 Social History Date Tobacco Use Types Packs/Day [...] Area Manufactur er 01/12/2022 01.32.154MH / / [id number] Acetabular Shell Multi Hole Liner E Joints Right: Hip MEDACTA Sie 54mm [place] Implanted: Qty: 1 on 06/20/2017 by Jose Antonio Moreno Jr., MD 11/02/2021 01.32.6625 / / [id number] Cancellous Bone Screw. Flat Head Joints Right: Hip MEDACTA 6.5mm 25mm Length [place] Implanted: Qty: 1 on 06/20/2017 by Jose Antonio Moreno Jr., MD 11/14/2021 01.32.3644HCT / / [id number] Flat Uhmwpe Liner E Head 36mm Flat. Joints Right: Hip MEDACTA Implanted: Qty: 1 on 06/20/2017 by Jose Antonio Major Jr., MD 01/07/2022 01.18.144 / / [id number] Lat. Femoral Stem Size 4 Lat Ordoñez Joints Right: Hip MEDACTA Coated [place] Implanted: Qty: 1 on 06/20/2017 by Jose Antonio Moreno Jr., MD 02/28/2022 01.29.209 / / [id number] Femoral Head 36mm Size M 0mm Joints Right: Hip MEDACTA Offset [place] Implanted: Qty: 1 on 06/20/2017 by Jose Antonio Moreno Jr., MD 09/29/2021 01.29.208 / / [id number] Femoral Head Left: Hip MEDACTA Implanted: Qty: 1 on 09/05/2017 by Jose Antonio Major Jr., MD 03/05/2021 01.32.6520 / / [id number] Cancellous Bone Screw Left: Hip MEDACTA Implanted: Qty: 1 on 09/05/2017 by Jose Antonio Major Jr., MD 10/05/2018 01.32.154MH / / [id number] Acetabular Shell Multi Hole Left: Hip MEDAFOR Implanted: Qty: 1 on 09/05/2017 by [facility] Jose Antonio Moreno Jr., MD 04/10/2022 01.32.3644HCT / / [id number] Flat Uhmwpe Liner Left: Hip MEDACTA Implanted: Qty: 1 on 09/05/2017 by Jose Antonio Major Jr., MD 06/28/2020 01.18.144 / / [id number] Lat Femoral Stem Left: Hip MEDACTA Implanted: Qty: 1 on 09/05/2017 by Jose Antonio Major Jr., MD Procedures Comments Procedure Name Priority Date/Time [...] VIEWS STAT 09/05/2017 4:56 PM CDT FL DISTRIBUTION A CLASS LINEMAN IN OR 30 Routine 09/05/2017 MINUTE INCREMENTS [...] VIEWS STAT 06/20/2017 3:47 PM CDT FL DISTRIBUTION A CLASS LINEMAN IN OR 30 Routine 06/20/2017 MINUTE INCREMENTS [...] HEMOGLOBIN Routine 06/13/2017 1:01 PM CDT after 04/10/2017 Results * CBC with platelet count + automated diff (09/15/2017 8:04 AM CDT) Only the most recent of 10 results within the time period is included. WBC 8.8 3.5 - 10.5 K/L [facility] RBC 3.36 (L) 4.63 - 6.08 M/L [facility] Hemoglobin 9.8 (L) 13.7 - 17.5 GM/DL [facility] Hematocrit 30.5 (L) 40.1 - 51.0 % [facility] MCV 90.8 79.0 - 92.2 fL [facility] MCH 29.2 25.7 - 32.2 pg [facility] MCHC 32.1 (L) 32.3 - 36.5 GM/DL [facility] RDW 13.4 11.6 - 14.4 % [facility] Platelets 416 150 - 450 K/CU MM [facility] MPV 8.8 (L) 9.4 - 12.4 fL [facility] nRBC 0 0 - 0 /100 WBC [facility] % Neutros 75 % [facility] % Lymphs 13 % [facility] % Monos 8 % [facility] % Eos 3 % [facility] % Baso 1 % [facility] # Neutros 6.64 (H) 1.78 - 5.38 K/L [facility] # Lymphs 1.11 (L) 1.32 - 3.57 K/L [facility] # Monos 0.72 0.30 - 0.82 K/L [facility] # Eos 0.24 0.04 - 0.54 K/L [facility] # Baso 0.07 0.01 - 0.08 K/L [facility] Immature 1 0 - 1 % [facility] Granulocytes-Relative [facility] Specimen Blood - Arm, Left Performing Organization Address City/State/Zipcode Phone Number [facility] [address] [place] [address] MEDICAL CENTER * PT/aPTT (09/14/2017 9:46 AM CDT) Protime 15.0 (H) 11.7 - 14.7 seconds [facility] INR 1.2 <=5.9 [facility] PTT 32.5 22.5 - 36.0 seconds [facility] Specimen Blood Narrative Performed At RECOMMENDED COUMADIN/WARFARIN INR THERAPY RANGES [facility] STANDARD DOSE: 2.0 - 3.0 Includes: PROPHYLAXIS for venous thrombosis, [facility] systemic embolization; TREATMENT for venous thrombosis and/or pulmonary embolus. HIGH RISK: Target INR is 2.5-3.5 for patients with mechanical heart valves. Performing Organization Address [facility] Cent[facility] Phone Number [facility] [address] [place] [address] [facility] * Basic Metabolic Panel (09/14/2017 9:46 AM CDT) Only the most recent of 9 results within the time period is included. Sodium 132 (L) 136 - 145 meq/L [facility] Potassium 3.9 3.5 - 5.1 meq/L [facility] Chloride 99 98 - 107 meq/L [facility] CO2 22 22 - 29 meq/L [facility] BUN 16 7 - 21 mg/dL [facility] Creatinine 0.94 0.57 - 1.25 mg/dL [facility] Glucose 126 (H) 70 - 105 mg/dL [facility] Calcium 10.0 8.4 - 10.2 mg/dL [facility] EGFR 85Comment: ESTIMATED GFR IS mL/min/1.[address] [facility] NOT ACCURATE CREATININE [facility] CLEARANCE IN PREDICTING GLOMERULAR FILTRATION RATE. ESTIMATED GFR IS NOT APPLICABLE FOR DIALYSIS PATIENTS. Specimen Blood Performing Organization Address City/[facility] Centercode Phone Number [facility] [address] [place] [address] [facility] * Hemoglobin and hematocrit (09/06/2017 5:10 AM CDT) Only the most recent of 2 results within the time period is included. Hemoglobin 10.0 (L) 13.7 - 17.5 GM/DL [facility] Hematocrit 31.0 (L) 40.1 - 51.0 % [facility] Specimen Blood - Arm, Left Performing Organization Address City/State/Zipcode Phone Number [facility] [address] [place] [address] MEDICAL CENTER * XR pelvis 1 or 2 [...] MD Report Verified Date/Time:09/05/2017 17:21:49 Reading Location: [address] Consult Reading Room Procedure Note Interface, [...] Report Verified Date/Time: 09/05/2017 17:21:49 Reading Location: [address] Consult Reading Room Performing Organization Address City/[facility]/Zipcode Phone Number [facility] * FL radar [...] MD Report Verified Date/Time:09/06/2017 07:48:53 Reading Location: [facility] C013 Neuro Reading Room Procedure Note Interface, External [...] Report Verified Date/Time: 09/06/2017 07:48:53 Reading Location: [facility] C0[facility] Neuro Reading Room Performing Organization Address City/[facility] Centercode Phone Number [facility] * HGB/HCT (H&H)-Stat Lab (09/05/2017 3:15 PM CDT) Hemoglobin 11.3 (L) 13.0 - 16.8 g/dL [facility] Hematocrit 33.0 (L) 40.0 - 50.0 % [facility] Specimen Blood - Arm, Left Performing Organization Address [facility]/Zipcode Phone Number [facility] [address] [place] [address] MEDICAL CENTER * Tissue Exam (09/05/2017 2:58 PM CDT) Only the most recent of 2 results within the time period is included. Case Report Surgical Pathology [facility] Case: [id number] Authorizing Provider:Jose Antonio Moreno Collected: 09/05/2017 Fabio Hou MD Ordering Location: [facility] PERIOPERATIVE Received: 09/06/2017 0810 SERVICES Pathologist: Diana Singleton Specimens: A) - Bone, FEMORAL CANAL B) - Femoral Head,Left Hip DIAGNOSIS A. BONE, FEMORAL CANAL: [facility] - BONE MARROW AND BLOOD WITH [facility] MILD REACTIVE CHANGES - NEGATIVE FOR MALIGNANCY B. FEMORAL HEAD, LEFT HIP, EXCISION: - DEGENERATIVE JOINT DISEASE (OSTEOARTHRITIS) KD/pl Signing Pathologist Direct Phone Line: [phone] CPT Code(s) 27802 x2; 05602 x4 [facility] CLINICAL HISTORY Arthritis of left hip [facility] SPECIMEN SOURCE A. Femoral canal. B. Left [facility] femoral hip [facility] GROSS DESCRIPTION Specimen is received in two [facility] containers both labeled with [facility] the patient's information. Specimen A: Labeled "femoral [...] CG/ew MICROSCOPIC DESCRIPTION A and B: Performed [facility] Specimen Tissue - Bone Performing Organization Address City/State/Zipcode Phone Number [facility] [address] [place] [address] [facility] * ANESTHESIA PERIPHERAL BLOCK (09/05/2017 [...] supine Prep: ChloraPrep Patient monitoring: heart rate, alarm security or surveillance monitor and continuous pulse ox Anesthesia block [...] supine Prep: ChloraPrep Patient monitoring: heart rate, alarm security or surveillance monitor and continuous pulse ox Anesthesia block [...] sitting Prep: Betadine Patient monitoring: heart rate, alarm security or surveillance monitor and continuous pulse ox Approach: midline [...] sitting Prep: Betadine Patient monitoring: heart rate, alarm security or surveillance monitor and continuous pulse ox Approach: midline [...] is included. ABO/RH AUTOMATED (BEAKER) AB POSITIVE [facility] Ab Scrn NEGATIVE [facility] Specimen Blood Performing Organization Address City/State/Zipcode Phone Number [facility] [address] [place] [address] [employer] [employer] [place] * Manual Differential (08/15/2017 11:20 AM CDT) Only the most recent of 5 results within the time period is included. % Neutros 61 % [facility] % Lymphs 7 % [facility] % Monos 14 % [facility] % Eos 19 % [facility] # Neutros 5.98 (H) 1.78 - 5.38 K/ul [facility] # Lymphs 0.69 (L) 1.32 - 3.57 K/ul [facility] # Monos 1.37 (H) 0.30 - 0.82 K/uL [facility] # Eos 1.86 (H) 0.04 - 0.54 K/uL [facility] Total Counted 100 [facility] WBC Morphology Normal [facility] Platelet Morphology Normal [facility] Anisocytosis 1+ few [facility] Microcytes 1+ few [facility] Artifact Present [facility] Platelet Conc Adequate [facility] Specimen Blood Narrative Performed At Received comment: [facility] User comments: [facility] Slide comments: Performing Organization Address City/State/Zipcode Phone Number [facility] [address] [place] [address] [facility] * Comprehensive metabolic panel (08/15/2017 11:20 AM CDT) Only the most recent of 4 results within the time period is included. Protein, Total 7.1 6.0 - 8.3 gm/dL [facility] Albumin 4.1 3.5 - 5.0 g/dL [facility] Alkaline Phosphatase 71 40 - 150 U/L [facility] Total Bilirubin 1.0 0.2 - 1.2 mg/dL [facility] Sodium 137 136 - 145 meq/L [facility] Potassium 4.3 3.5 - 5.1 meq/L [facility] Chloride 105 98 - 107 meq/L [facility] CO2 22 22 - 29 meq/L [facility] BUN 25 (H) 7 - 21 mg/dL [facility] Creatinine 1.08 0.57 - 1.25 mg/dL [facility] Glucose 112 (H) 70 - 105 mg/dL [facility] Calcium 9.0 8.4 - 10.2 mg/dL [facility] AST 17 5 - 34 U/L [facility] ALT 20 6 - 55 U/L [facility] EGFR 72Comment: ESTIMATED GFR IS mL/min/1.[address] [facility] NOT ACCURATE CREATININE [facility] CLEARANCE IN PREDICTING GLOMERULAR FILTRATION RATE. ESTIMATED GFR IS NOT APPLICABLE FOR DIALYSIS PATIENTS. Specimen Blood Performing Organization Address City/[facility] [place] [address] [facility] * Calcium, Ionized (08/06/2017 5:29 AM CDT) Only the most recent of 2 results within the time period is included. Calcium, Ion 1.03 (L) 1.12 - 1.27 mmol/L [facility] pH, Blood 7.41 [facility] Specimen Blood Performing Organization Address City/[facility] Centercode Phone Number [address] [address] [facility] * Phosphorus (08/06/2017 5:29 AM CDT) Only the most recent of 4 results within the time period is included. Phosphorus 3.3Comment: Specimen slightly 2.3 - 4.7 mg/dL [facility] hemolyzed [facility] Specimen Blood Performing Organization Address City/[facility]/Zipcode Phone Number [address] [address] [phone] [place] [address] * Magnesium (08/06/2017 5:29 AM CDT) Only the most recent of 5 results within the time period is included. Magnesium 2.3Comment: Specimen slightly 1.6 - 2.6 mg/dL [facility] hemolyzed [facility] Specimen Blood Performing Organization Address [facility] Centercoma Phone Number [address] * Hepatic function panel (08/05/2017 4:24 AM CDT) Only the most recent of 6 results within the time period is included. Protein, Total 5.5 (L) 6.0 - 8.3 gm/dL [facility] Albumin 3.3 (L) 3.5 - 5.0 g/dL [facility] Total Bilirubin 0.4 0.2 - 1.2 mg/dL [facility] Bilirubin, Direct 0.1 0.1 - 0.5 mg/dL [facility] Alkaline Phosphatase 71 40 - 150 U/L [facility] AST 14 5 - 34 U/L [facility] ALT 30 6 - 55 U/L [facility] Specimen Blood - Arm, Left Performing Organization Address [facility] Phone Number [address] * Uric acid (08/04/2017 4:39 AM CDT) Uric Acid 5.2 2.6 - 7.2 mg/dL [facility] Specimen Blood - Arm, Right Performing Organization Address [facility] Centercode Phone Number [address] [address] [phone] * B-type Natriuretic Factor (BNP) (08/04/2017 4:39 AM CDT) BNP 217 (H) 0 - 100 pg/mL [facility] Specimen Blood - Arm, Right Performing Organization Address [facility] Centercode Phone Number [address] * Creatine Kinase (CK) (08/04/2017 4:39 AM CDT) Total CK 25 (L) 29 - 200 U/L [facility] Specimen Blood - Arm, Right Performing Organization Address [facility] Cent[facility]ode Phone Number [address] * Sodium, random urine (08/03/2017 11:27 PM CDT) Sodium Urine 89 meq/L [facility] Specimen Urine Narrative Performed At Reference Range: No Normals [facility] Performing Organization Address [facility] Phone Number [address] * Protein, random urine (08/03/2017 11:27 PM CDT) Protein, Urine <7 0 - 14 mg/dL [facility] Specimen Urine Performing Organization Address [facility] Phone Number [address] * Creatinine, random urine (08/03/2017 11:27 PM CDT) Creatinine, Ur 80.1 mg/dL [facility] Specimen Urine Narrative Performed At Reference Range: No Normals [facility] Performing Organization Address [facility] Centercode Phone Number [address] * Eosinophil smear (08/03/2017 11:27 PM CDT) Eosinophil Smear No EOS seen No EOS seen [facility] Specimen Urine Performing Organization Address City/[facility] Centercode Phone Number [facility] [address] [address] MEDICAL CENTER * US renal complete (08/03/2017 9:58 PM CDT) Narrative Performed At FINAL REPORT Sunglass Comparison examination: None Right kidney : 12.6 [...] MD Report Verified Date/Time:08/03/2017 22:14:52 Reading Location: [address] Ortho Consult Reading Room Procedure Note [...] Report Verified Date/Time: 08/03/2017 22:14:52 Reading Location: [facility] [id number] Ortho Consult Reading Room Performing Organization Address City/State/Zipcode Phone Number [facility] * Vancomycin level, random (08/03/2017 10:27 AM CDT) Vancomycin Rm <1.1 ug/mL [facility] Specimen Blood Narrative Performed At Reference Range: No Normals [facility] Performing Organization Address City/[facility] Centercode Phone Number [address] * TSH/Free T4 If Indicated (08/03/2017 4:54 AM CDT) TSH 0.30 (L) 0.35 - 4.94 uIU/mL [facility] Specimen Blood - Arm, Right Performing Organization Address City/[facility] Cent[facility]ode Phone Number [address] * C-Reactive Protein (08/03/2017 4:54 AM CDT) Only the most recent of 2 results within the time period is included. CRP 0.48 0.00 - 0.50 mg/dL [facility] Specimen Blood - Arm, Right Performing Organization Address [facility] Phone Number [address] * T4, free (08/03/2017 4:54 AM CDT) Free T4 0.94 0.70 - 1.48 ng/dL [facility] Specimen Blood - Arm, Right Performing Organization Address [facility] Phone Number [address] * Hemoglobin A1c (08/03/2017 4:54 AM CDT) Hemoglobin A1C 5.8 4.3 - 6.1 % [facility] Specimen Blood - Arm, Right Performing Organization Address [facility] Centercode Phone Number [address] * Lipid panel (08/03/2017 4:54 AM CDT) Triglycerides 130 mg/dL [facility] Cholesterol 169 mg/dL [facility] HDL 32 mg/dL [facility] LDL Calculated 111 mg/dL [facility] Specimen Blood - Arm, Right Narrative Performed At Triglyceride Reference Range: [facility] Low Risk <150 [facility] [id number] High Risk 200-499 Very High Risk>=500 Cholesterol Reference Range: Low Risk <200 [id number] High Risk>240 HDL Cholesterol Reference Range: Low Risk >=60 High Risk <40 LDL Cholesterol Reference Range: Optimal<100 Near [id number] [id number] [id number] Very High >=190 Performing Organization Address [facility] Phone Number [facility] [address] [place] [address] MEDICAL CENTER * Urinalysis w/Microscopic (08/02/2017 11:34 PM CDT) Only the most recent of 2 results within the time period is included. Color, UA Yellow [facility] Clarity, UA Clear [facility] Specific [place], UA 1.015 1.001 - 1.035 [facility] pH, UA 6.0 5.0 - 8.0 [facility] Protein, UA Negative Negative [facility] Glucose, UA Negative Negative [facility] Ketones, UA Negative Negative [facility] Bilirubin, UA Negative Negative [facility] Blood, UA Negative Negative [facility] Nitrite, UA Negative Negative [facility] Leukocytes, UA Negative Negative [facility] Urobilinogen, UA 0.2 0.2 - 1.0 mg/dL [facility] RBC, UA <1 /HPF [facility] WBC, UA 1 /HPF [facility] Specimen Source Urine, Clean Catch [facility] Specimen Urine - Urine, Clean Catch Performing Organization Address [facility] Centercode Phone Number [facility] [address] [place], [place] [phone] [facility] * POCT OCCULT BLOOD STOOL (GUIAC) [facility] ED & CEC'S ONLY (07/26/2017 2:44 PM CDT) Fecal Occult Blood Negative Negative (ia), POC QC Result Acceptable?, QC Acceptable POC FOB Card Lot #, POC [id number] 12-24 FOB Developer Lot # [id number] 2019-08 Specimen Stool * POC-Lactic Acid, Venous (07/26/2017 1:26 PM CDT) POC-Lactic Acid, Venous 0.6 (L)Comment: TESTED AT 0.9 - 1.7 mmol/L [address] [address] Specimen Blood Performing Organization Address City/State/Zipcode Phone Number [address] [phone] [facility] * XR chest 1 view portable / bedside (07/26/2017 1:18 PM CDT) Only the most recent of 2 results within the time period is included. Narrative Performed At FINAL REPORT [facility] TECHNIQUE: Frontal chest radiographs dated 07/26/2017. CLINICAL HISTORY: Fever, emesis, COMPARISON STUDY: Chest radiograph dated 07/13/2017 IMPRESSION: Left-sided PICC is unchanged. Lungs are clear. No pleural effusion or pneumothorax. Cardiomediastinal silhouette is normal in size. No pulmonary edema. Bones are normal in appearance. Signed: Clari Taylor MD Report Verified Date/Time:07/26/2017 13:30:26 Reading Location: [facility] Radiology Reading Room Procedure Note Interface, External [...] Report Verified Date/Time: 07/26/2017 13:30:26 Reading Location: [facility] Radiology Reading Room Performing Organization Address City/State/Zipcode Phone Number [facility] * Blood culture #2 (07/26/2017 1:10 PM CDT) Only the most recent of 3 results within the time period is included. Result No growth in 5 days [facility] Specimen Blood - Arm, Right Performing Organization Address [facility] [place] [address] [phone] * Prothrombin time/INR (07/26/2017 1:10 PM CDT) Only the most recent of 2 results within the time period is included. Protime 14.9 (H) 11.7 - 14.7 seconds [facility] INR 1.2 <=5.9 [facility] Specimen Blood - Arm, Left Narrative Performed At RECOMMENDED COUMADIN/WARFARIN INR THERAPY RANGES [facility] STANDARD DOSE: 2.0 - 3.0 Includes: PROPHYLAXIS for venous thrombosis, [facility] systemic embolization; TREATMENT for venous thrombosis and/or pulmonary embolus. HIGH RISK: Target INR is 2.5-3.5 for patients with mechanical heart valves. Performing Organization Address [facility] [place] [address] [facility] * Rapid influenza A&B screen (07/26/2017 1:10 PM CDT) Rapid Influenza A Antigen NEGATIVE LABORATORY FINDING Negative, Inconclusive [facility] Rapid influenza B Antigen NEGATIVE LABORATORY FINDING Negative, Inconclusive [facility] Specimen Nasal - Nasal Mucosa Performing Organization Address [facility] Phone Number [place] [phone] [place] [address] [phone] [place] [address] * Urine culture (07/26/2017 1:10 PM CDT) Result No growth [facility] Specimen Urine - Urine, Voided Performing Organization Address [facility] [place] [address] [phone] [place] [address] * BCID (07/26/2017 1:09 PM CDT) Scan Result [facility] Specimen Blood Narrative Performed At [facility] Result comments: [facility] Coagulase Negative Staphylococcus Species (CoNS) DETECTED, Methicillin Susceptible First line therapy: cefazolin, nafcillin (nafcillin preferred for Central Nervous System infection) Coagulase Negative Staphylococcus (CoNS) DETECTED mecA NOT DETECTED Other organisms and resistance markers not contained in this PCR panel cannot be excluded and follow-up of traditional culture results is required. This sample was tested at the [facility] Clinical Microbiology Laboratory using the [employer]Array Blood Culture ID Panel. This test is FDA cleared for in vitro diagnostic use and has been verified and approved by the [facility] Clinical Microbiology laboratory for clinical use. Reference Range: Not Detected Performing Organization Address [facility] Phone Number [place] [phone] [place] [address] * Vancomycin level, trough (07/17/2017 12:42 PM CDT) Only the most recent of 3 results within the time period is included. Vancomycin Tr 18.5 10.0 - 20.0 ug/mL [facility] Specimen Blood - Central Venous Line Narrative Performed At Please obtain vancomycin trough 30 min prior to scheduled dose. Hold dose if [facility] level >20 [facility] Performing Organization Address [facility] Phone Number [place] [phone] [place] [address] [phone] * Body fluid cell count with differential (07/13/2017 11:46 AM CDT) Appearance Bloody (A) Clear [facility] Color Red (A) Colorless, Straw [facility] RBCs 118,000 (H) <=1 /cu mm [facility] Adjusted WBC Count 2,824 (H) <=5 /cu mm [facility] Lining Cells 0 <=1 /cu mm [facility] % Segs 4 % [facility] % Lymphs 26 % [facility] % Monos 63 % [facility] % Eos 7 % [facility] % Baso 0 % [facility] Container Body Fluid EDTA Tube [facility] Specimen Aspirate - Hip, Right Performing Organization Address City/State/[place] [address] [facility] * Body fluid culture + gram stain (07/13/2017 11:45 AM CDT) Result No growth [facility] Gram Stain Result 1+ WBCs [facility] Gram Stain Result No organisms seen [facility] Specimen Body Fluid - Hip, Right Performing Organization Address [facility] [place] [address] [facility] * [place] aspiration hip right (07/13/2017 10:45 AM CDT) Narrative Performed At FINAL REPORT [facility] Right hip aspiration History: Rule out infection [...] MD Report Verified Date/Time:07/19/2017 14:12:50 Reading Location: [facility] [id number] Ortho Consult Reading Room Procedure Note [...] Report Verified Date/Time: 07/19/2017 14:12:50 Reading Location: [id number] Ortho Consult Reading Room Performing Organization Address City/State/Zipcode Phone Number [facility] * Rapid drug screen, urine (07/12/2017 5:20 PM CDT) Barbiturate Screen Negative Negative [facility] Benzodiazepine Screen Negative Negative [facility] Cocaine (Metab.) Screen Negative Negative [facility] Methadone Screen Negative Negative [facility] Opiate Screen Negative Negative [facility] Cannabinoid Screen Positive (A) Negative [facility] Amph/Methamph Screen Negative Negative [facility] Phencyclidine Screen Negative Negative [facility] Oxycodone Screen Negative Negative [facility] Specimen Urine Narrative Performed At [facility] Cocaine 300 ng/mL [facility] Equzjnfidxp07 ng/mL [id number] ng/mL Barbiturate 200 ng/mL Komgmbfpmzfgd37 ng/mL Kgawnj697 ng/mL Methadone 300 ng/mL Amphetamine/ 1000 ng/mL Methamphetamine Oxycodone 300 ng/mL This assay provides an unconfirmed qualitative test result for the clinical management of patients in emergency situations. Chain of custody not maintained. Some uvfc-leg-[id number] medications, as well as adulterants, may cause inaccurate results. Clinical correlation should be applied. A more comprehensive drug screen or confirmation of a detected drug may be performed upon request. Performing Organization Address City/[facility] Phone Number [facility] [address] [place] [address] [facility] * CBC (Hemogram only) (07/12/2017 4:44 PM CDT) WBC 5.9 3.5 - 10.5 K/L [facility] RBC 3.81 (L) 4.63 - 6.08 M/L [facility] Hemoglobin 11.4 (L) 13.7 - 17.5 GM/DL [facility] Hematocrit 35.3 (L) 40.1 - 51.0 % [facility] MCV 92.7 (H) 79.0 - 92.2 fL [facility] MCH 29.9 25.7 - 32.2 pg [facility] MCHC 32.3 32.3 - 36.5 GM/DL [facility] RDW 12.0 11.6 - 14.4 % [facility] Platelets 326 150 - 450 K/CU MM [facility] MPV 9.4 9.4 - 12.4 fL [facility] nRBC 0 0 - 0 /100 WBC [facility] Specimen Blood Performing Organization Address City/[facility]/Zipcode Phone Number [facility] [address] [place] [address] [facility] * RHYTHM STRIP - SCAN (06/22/2017 3:12 PM CDT) Narrative Performed At * Platelet count (06/13/2017 1:01 PM CDT) Platelets 210 150 - 450 K/CU MM [facility] Specimen Blood Performing Organization Address City/[facility] Phone Number [facility] [address] [place] [address] [facility] * Hemoglobin (06/13/2017 1:01 PM CDT) Hemoglobin 15.2 13.7 - 17.5 GM/DL [facility] Specimen Blood Performing Organization Address [facility] Phone Number [facility] [address] [place] [address] [facility] after 04/10/2017 Insurance Payer Benefit Subscriber ID Type Phone Address Plan / Group [employer]IE [employer] xxxxxxxxxxx [employer] Advance Directives For more information, please contact: [address] [phone] Date Inactivated Comments Code Status Date Activated [...]
[2018-04-11 14:03] VITALS: BP 147/107
== END 2018-04-11 14:07 | disposition home or self-care (01) ==
LOC: FSED 12:23
DX: L02.413 Cutaneous abscess of right upper limb (principal); Z96.643 Presence of artificial hip joint, bilateral; F17.210 Nicotine dependence, cigarettes, uncomplicated; F12.90 Cannabis use, unspecified, uncomplicated
CPT/HCPCS: 99283

== ENCOUNTER 2018-08-15 10:40 | Emergency (ER) | payer SELFPAY ==
[~2018-08-15] VITALS: Ht 182.9 cm; Wt 119.5 kg
--- OUTSIDE RECORDS SUMMARY | 2018-08-15 10:44 | XMS REPORT | Clinical Summary ---
Author Author KRISTIAN [facility] Address Unknown Phone Unavailable Care Team Providers Care Healthcare Representative Name Role Phone Sharpless PCP Allergies Comments [...] for Pain. Max Daily Amount: 4 tablets 08/15/2017 Discontinued HYDROcodone-acetaminophen Every 6 Hours 0 (NORCO) 10-325 mg per as needed for tablet Pain 08/15/2017 Discontinued ondansetron (ZOFRAN) 4 MG Take [...] for Itching for up to 10 days. 08/15/2017 Discontinued pantoprazole (PROTONIX) Take 1 tablet 10 tablet 0 40 MG tablet (40 mg total) 8 by mouth daily for 10 days. 08/15/2017 Discontinued calamine-zinc oxide Apply 50 mLs 50 mL 0 (CALADRYL) 8-8 % Lotn topically 2 8 topical suspension (two) times daily as needed (skin rash.) for up to 10 days. 10/07/2017 aspirin 325 MG EC tablet Take [...] abuse 07/12/2017 Mild tetrahydrocannabinol (THC) abuse 07/12/2017 Encounters Care Team Description Date Type Specialty [...] Event Jose Antonio Moreno Jr., MD 09/05/2017 Hospital General Internal Medicine - Encounter 09/07/2017 Jose Antonio Moreno Jr., MD 08/31/2017 Hospital Pre-Admission Testing Encounter Darshan Diane MD Infection of prosthetic hip joint, subsequent encounter (Primary Dx); Skin rash; Tobacco abuse; Urticaria 08/15/2017 Office Visit Cardiology after 08/14/2017 Social History Date Tobacco Use Types Packs/Day [...] Body Mass Index 33.91 Plan of Treatment Not on file Implants Device Identifier Shelf Expiration Date Model / Serial / Lot Implanted Type Area Manufactur er 01/12/2022 01.32.154MH / / [id number] Acetabular Shell Multi Hole Liner E Joints Right: Hip MEDACTA Sie 54mm [place] Implanted: Qty: 1 on 06/20/2017 by Jose Antonio Moreno Jr., MD 11/02/2021 01.32.6625 / / [id number] Cancellous Bone Screw. Flat Head Joints Right: Hip [employer]A 6.5mm 25mm Length [facility] Implanted: Qty: 1 on 06/20/2017 by Jose Antonio Moreno Jr., MD 11/14/2021 01.32.3644HCT / / [id number] Flat Uhmwpe Liner E Head 36mm Flat. Joints Right: Hip [employer] Implanted: Qty: 1 on 06/20/2017 by Jose Antonio Major Jr., MD 01/07/2022 01.18.144 / / [id number] Lat. Femoral Stem Size 4 Lat Ordoñez Joints Right: Hip [employer] Coated [place] Implanted: Qty: 1 on 06/20/2017 by Jose Antonio Moreno Jr., MD 02/28/2022 01.29.209 / / [id number] Femoral Head 36mm Size M 0mm Joints Right: Hip [employer] Offset [place] Implanted: Qty: 1 on 06/20/2017 by Jose Antonio Moreno Jr., MD 09/29/2021 01.29.208 / / [id number] Femoral Head Left: Hip [employer]A Implanted: Qty: 1 on 09/05/2017 by Jose Antonio Major Jr., MD 03/05/2021 01.32.6520 / / [id number] Cancellous Bone Screw Left: Hip [employer]ACTA Implanted: Qty: 1 on 09/05/2017 by Jose Antonio Major Jr., MD 10/05/2018 01.32.154MH / / [id number] Acetabular Shell Multi Hole Left: Hip MED[employer]OR Implanted: Qty: 1 on 09/05/2017 by [facility] Jose Antonio Moreno Jr., MD 04/10/2022 01.32.3644HCT / / [id number] Flat Uhmwpe Liner Left: Hip [employer] Implanted: Qty: 1 on 09/05/2017 by Jose Antonio Major Jr., MD 06/28/2020 01.18.144 / / [id number] Lat Femoral Stem Left: Hip [employer] Implanted: [...] VIEWS STAT 09/05/2017 4:56 PM CDT [place] 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 WBC 8.8 3.5 - 10.5 K/L [facility] RBC 3.36 (L) 4.63 - 6.08 M/L [facility] Hemoglobin 9.8 (L) 13.7 - 17.5 GM/DL [facility] Hematocrit 30.5 (L) 40.1 - 51.0 % [facility] MCV 90.8 79.0 - 92.2 fL [facility] MCH 29.2 25.7 - 32.2 pg [facility] MCHC 32.1 (L) 32.3 - 36.5 GM/DL [facility] RDW 13.4 11.6 - 14.4 % [facility] Platelets 416 150 - 450 K/CU MM [facility] MPV 8.8 (L) 9.4 - 12.4 fL [facility] nRBC 0 0 - 0 /100 WBC [facility] % Neutros 75 % [facility] % Lymphs 13 % [facility] % Monos 8 % [facility] % Eos 3 % [facility] % Baso 1 % [facility] # Neutros 6.64 (H) 1.78 - 5.38 K/L [facility] # Lymphs 1.11 (L) 1.32 - 3.57 K/L [facility] # Monos 0.72 0.30 - 0.82 K/L [facility] # Eos 0.24 0.04 - 0.54 K/L [facility] # Baso 0.07 0.01 - 0.08 K/L [facility] Immature 1 0 - 1 % [facility] Granulocytes-Relative [facility] Specimen Blood Performing Organization Address City/[facility] Cent[facility]ode Phone Number [place] [phone] [place] [address] [facility] * PT/aPTT (09/14/2017 9:46 AM CDT) Protime 15.0 (H) 11.7 - 14.7 seconds [facility] INR 1.2 <=5.9 [facility] PTT 32.5 22.5 - 36.0 seconds [facility] Specimen Blood Narrative Performed At RECOMMENDED COUMADIN/WARFARIN INR THERAPY RANGES [facility] STANDARD DOSE: 2.0 - 3.0 Includes: PROPHYLAXIS for venous thrombosis, [facility] systemic embolization; TREATMENT for venous thrombosis and/or pulmonary embolus. HIGH RISK: Target INR is 2.5-3.5 for patients with mechanical heart valves. Performing Organization Address City/[facility] Centercode Phone Number [facility] [address] [place] [address] [facility] * Basic Metabolic Panel (09/14/2017 9:46 AM CDT) Only the most recent of 2 results within the time period is included. Sodium 132 (L) 136 - 145 meq/L [facility] Potassium 3.9 3.5 - 5.1 meq/L [facility] Chloride 99 98 - 107 meq/L [facility] CO2 22 22 - 29 meq/L [facility] BUN 16 7 - 21 mg/dL [facility] Creatinine 0.94 0.57 - 1.25 mg/dL [facility] Glucose 126 (H) 70 - 105 mg/dL [facility] Calcium 10.0 8.4 - 10.2 mg/dL [facility] EGFR 85Comment: ESTIMATED GFR IS mL/min/1.[address] [facility] NOT ACCURATE CREATININE [facility] CLEARANCE IN PREDICTING GLOMERULAR FILTRATION RATE. ESTIMATED GFR IS NOT APPLICABLE FOR DIALYSIS PATIENTS. Specimen Blood Performing Organization Address City/State/Zipcode Phone Number [facility] [address] [place], [place] [id number] [address] * Hemoglobin and hematocrit (09/06/2017 5:10 AM CDT) Hemoglobin 10.0 (L) 13.7 - 17.5 GM/DL [facility] Hematocrit 31.0 (L) 40.1 - 51.0 % [facility] Specimen Blood Performing Organization Address City/[facility]/Zipcode Phone Number [facility] [address] [place] [address] [phone] [address] * XR pelvis 1 or 2 views (09/05/2017 4:56 PM CDT) Specimen Narrative Performed At FINAL REPORT [facility] INDICATION: Status post left total hip replacement. COMPARISON: July 12, 2017 TECHNIQUE: Pelvis radiograph two views. FINDINGS / IMPRESSION: There is interval left total hip replacement with grossly aligned components. No fracture demonstrated. As before there is a right total hip replacement. Signed: Fareed Salomon MD Report Verified Date/Time:09/05/2017 17:21:49 Reading Location: [address] Consult Reading Room Procedure Note Interface, [...] Report Verified Date/Time: 09/05/2017 17:21:49 Reading Location: [address] Consult Reading Room Performing Organization Address City/State/Zipcode Phone Number [facility] * [place] international trade manager in or 30 minute increments (09/05/2017 3:35 PM CDT) Specimen Narrative Performed At FINAL REPORT [facility] Fluoroscopy 3 views intraoperative 09/05/2017 at 1220. CLINICAL HISTORY: Instrument localization COMPARISON: None available IMPRESSION: Please correlate imaging report findings with the procedure note prepared by Dr. Moreno, as an intra-procedure imaging consultation was not requested. Reported fluoroscopy time: 89.0 seconds. Signed: Dario Brantley MD Report Verified Date/Time:09/06/2017 07:48:53 Reading Location: [address] Neuro Reading Room Procedure Note Interface, [...] Report Verified Date/Time: 09/06/2017 07:48:53 Reading Location: [address] Neuro Reading Room Performing Organization Address City/State/Zipcode Phone Number [facility] * HGB/HCT (H&H)-Stat Lab (09/05/2017 3:15 PM CDT) Hemoglobin 11.3 (L) 13.0 - 16.8 g/dL [facility] Hematocrit 33.0 (L) 40.0 - 50.0 % [facility] Specimen Blood Performing Organization Address [facility]/Zipcode Phone Number [facility] [address] [place] [address] MEDICAL CENTER * Tissue Exam (09/05/2017 2:58 PM CDT) Case Report Surgical Pathology [facility] Report [facility] Case: [id number] Authorizing Provider:Jose Antonio Moreno Collected: 09/05/2017 1458 MD Ameya Ordering Location: [facility] PERIOPERATIVE Received: 09/06/2017 0810 SERVICES Pathologist: Diana Singleton Specimens: A) - Bone, FEMORAL CANAL B) - Femoral Head,Left Hip DIAGNOSIS A. BONE, FEMORAL CANAL: [facility] - BONE MARROW AND BLOOD WITH [facility] MILD REACTIVE CHANGES - NEGATIVE FOR MALIGNANCY B. FEMORAL HEAD, LEFT HIP, EXCISION: - DEGENERATIVE JOINT DISEASE (OSTEOARTHRITIS) KD/pl Signing Pathologist Direct Phone Line: [phone] CPT Code(s) 71204 x2; 05160 x4 [facility] CLINICAL HISTORY Arthritis of left hip [facility] SPECIMEN SOURCE A. Femoral canal. B. Left [facility] femoral hip [facility] GROSS DESCRIPTION Specimen is received in two [facility] containers both labeled with [facility] the patient's information. Specimen A: Labeled "femoral [...] CG/ew MICROSCOPIC DESCRIPTION A and B: Performed [facility] Specimen Tissue Tissue - Femoral Head,Left Hip Performing Organization Address City/State/Zipcode Phone Number [facility] [address] [place] [address] [facility] * ANESTHESIA PERIPHERAL BLOCK (09/05/2017 10:48 AM [...] supine Prep: ChloraPrep Patient monitoring: heart rate, panel monitor and continuous pulse ox Anesthesia block [...] supine Prep: ChloraPrep Patient monitoring: heart rate, panel monitor and continuous pulse ox Anesthesia block [...] ANESTHESIA SPINAL BLOCK (09/05/2017 10:46 AM CDT) Narrative Performed At Dylan Cid [...] sitting Prep: Betadine Patient monitoring: heart rate, panel monitor and continuous pulse ox Approach: midline [...] sitting Prep: Betadine Patient monitoring: heart rate, panel monitor and continuous pulse ox Approach: midline Location: L3-4 Injection technique: single-shot Needle Needle type: daniel. Needle gauge: 25 G Needle length: 10 cm Assessment Sensory level: T10 Events: cerebrospinal fluid Additional Notes Patient tolerated procedure well. No pain throughout procedure or injection. * TRANSFUSION SERVICE REPORT - SCAN (09/01/2017 5:53 PM CDT) Narrative Performed At * Type and screen, automated (08/31/2017 1:34 PM CDT) ABO/RH AUTOMATED (BEAKER) AB POSITIVE [facility] Ab Scrn NEGATIVE [facility] Specimen Blood Performing Organization Address City/State/Zipcode Phone Number [facility] [address] [place] [address] MEDICAL [facility]ENTER * Manual Differential (08/15/2017 11:20 AM CDT) % Neutros 61 % [facility] % Lymphs 7 % [facility] % Monos 14 % [facility] % Eos 19 % [facility] # Neutros 5.98 (H) 1.78 - 5.38 K/ul [facility] # Lymphs 0.69 (L) 1.32 - 3.57 K/ul [facility] # Monos 1.37 (H) 0.30 - 0.82 K/uL [facility] # Eos 1.86 (H) 0.04 - 0.54 K/uL [facility] Total Counted 100 [facility] WBC Morphology Normal [facility] Platelet Morphology Normal [facility] Anisocytosis 1+ few [facility] Microcytes 1+ few [facility] Artifact Present [facility] Platelet Conc Adequate [facility] Specimen Blood Narrative Performed At Received comment: [facility] User comments: [facility] Slide comments: Performing Organization Address City/[facility]/Zipcode Phone Number [facility] [address] [place] [address] [facility] * Comprehensive metabolic panel (08/15/2017 11:20 AM CDT) [facility], Total 7.1 6.0 - 8.3 gm/dL [facility] Albumin 4.1 3.5 - 5.0 g/dL [facility] Alkaline Phosphatase 71 40 - 150 U/L [facility] Total Bilirubin 1.0 0.2 - 1.2 mg/dL [facility] Sodium 137 136 - 145 meq/L [facility] Potassium 4.3 3.5 - 5.1 meq/L [facility] Chloride 105 98 - 107 meq/L [facility] CO2 22 22 - 29 meq/L [facility] BUN 25 (H) 7 - 21 mg/dL [facility] Creatinine 1.08 0.57 - 1.25 mg/dL [facility] Glucose 112 (H) 70 - 105 mg/dL [facility] Calcium 9.0 8.4 - 10.2 mg/dL [facility] AST 17 5 - 34 U/L [facility] ALT 20 6 - 55 U/L [facility] EGFR 72Comment: ESTIMATED GFR IS mL/min/1.[address] [facility] NOT ACCURATE CREATININE [facility] CLEARANCE IN PREDICTING GLOMERULAR FILTRATION RATE. ESTIMATED GFR IS NOT APPLICABLE FOR DIALYSIS PATIENTS. Specimen Blood Performing Organization Address City/[facility]/Zipcode Phone Number [facility] [address] [place] [address] [phone] [place] [address] after 08/14/2017 Insurance Payer Benefit Subscriber ID Type Phone Address Plan / Group NAJMAHARVINDEREdward YAOHARVINDEREdward xxxxxxxxxxx SUPERIOR Advance Directives For more information, please contact: [facility] [address] [place] [address] Date Inactivated Comments Code Status Date [...]
--- OUTSIDE RECORDS SUMMARY | 2018-08-15 10:46 | XMS REPORT | Continuity of Care Document ---
Author Author [employer] Organization [employer] Address Unknown Phone Unavailable Care Team Providers Care Vender Name Role Phone [employer] Unavailable Unavailable Problems Problem Status Onset Date Classification Date Reported Comments Source K40.90 UNILATERAL INGUINAL HERNIA, WITHO Active 06/25/2015 [facility] Discharge Diagnosis: Headache 07/05/2014 07/08/2014 [facility] Discharge Diagnosis: Acute sinusitis 07/05/2014 07/08/2014 [facility] NOSEBLEED Active 07/05/2014 [facility] Discharge Diagnosis: Acute headache 07/04/2014 07/07/2014 [facility] Discharge Diagnosis: Occipital neuralgia 07/04/2014 07/07/2014 [facility] HEAD PAIN Active 07/04/2014 [facility] Bilateral hip joint arthritis Active Problem 06/26/2017 [facility] Pre-operative clearance Active Diagnosis 06/26/2017 [facility] Non morbid obesity due to excess calories Active Problem 06/26/2017 [facility] Pain of right hip joint Active Diagnosis 06/26/2017 [facility] Vitamin D deficiency Active Diagnosis 02/11/2016 [facility] Encounter to discuss test results Active Diagnosis 07/31/2015 [facility] Prediabetes Active Diagnosis 07/31/2015 [facility] Umbilical hernia Active Diagnosis 07/31/2015 [facility] Hyperlipidemia [...] Vitamin D (Ergocalciferol) 1 capsule Orally Active 50830 UNIT Orally once per week (MUST SEE DOCTOR BEFORE NEXT REFILL) Ghebranious 07/29/2015 [facility] ibuprofen 600 mg oral tablet 600 mg=1 tab, PO, Q8H, PRN Headache 6-10, take with food, # 30 tab, 0 Refill(s)Special Instructions: take with food Active 07/05/2014 [facility] Amoxicillin 875 MG / Clavulanate 125 MG Oral Tablet [Augmentin 875-mg] 875 mg=1 tab, PO, BID, X 10 day, # 20 tab, 0 Refill(s) Active 07/05/2014 [facility] Ketorolac 15 mg, 1 mL, Route: IVP, Drug form: INJ, ONCE, Dosing Weight 125, kg, Priority: STAT, Start date: 07/05/14 13:33:00, Stop date: 07/05/14 13:33:00Notes: (Same as:Toradol) IV bolus must be given >15 seconds. Give IM administration slowly and deeply into the muscle. Not for use > 4 days. Inactive 07/05/2014 [facility] Reglan 10 mg, 2 mL, Route: IVP, Drug form: INJ, ONCE, Dosing Weight 125, kg, Priority: STAT, Start date: 07/05/14 12:50:00, Stop date: 07/05/14 12:50:00Notes: (Same as: Reglan) Inactive 07/05/2014 [facility] Acetaminophen 325 MG / butalbital 50 MG / Caffeine 40 MG Oral Tablet [Esgic] 2 tab, Route: PO, Drug Form: TAB, Dosing Weight 125, kg, ONCE, Start date: 07/04/14 21:09:00, Stop date: 07/04/14 21:09:00Notes: ([id number]-hlhgvqdv 325-50-40mg) Do not exceed 4 gm/day of acetaminophen. (Same as: Esgic, Fioricet) Inactive 07/05/2014 [facility] ketOROLAC 30 mg/mL injectable solution 60 mg, [...] mg Product Wasted: __0_ mg Inactive 07/05/2014 [facility] Zofran ODT 4 mg, Route: PO, Drug form: TABDIS, ONCE, Dosing Weight 125, kg, Priority: STAT, Start date: 07/04/14 19:57:00, Stop date: 07/04/14 19:57:00 Inactive 07/05/2014 [facility] Benadryl 25 mg, Route: PO, ONCE, Dosing Weight 125, kg, Start date: 07/04/14 19:57:00, Stop date: 07/04/14 19:57:00 Inactive 07/05/2014 [facility] Ketorolac 30 mg, 1 mL, Route: IVP, Drug form: INJ, ONCE, Dosing Weight 125, kg, Priority: STAT, Start date: 07/04/14 19:57:00, Stop date: 07/04/14 19:57:00Notes: (Same as:Toradol) IV bolus must be given >15 seconds. Give IM administration slowly and deeply into the muscle. Not for use > 4 days MEDICATION WASTE Product Size: 30 mg Product Wasted: __0_ mg Inactive 07/05/2014 [facility] Metoclopramide 10 MG Oral Tablet [Reglan] 10 mg, 1 tab, Route: PO, Drug form: TAB, ONCE, Dosing Weight 125, kg, Start date: 07/04/14 19:57:00, Stop date: 07/04/14 19:57:00Notes: (Same as: Reglan) Take 30 min before meals Inactive 07/05/2014 [facility] Tramadol HCl 1 tablet as needed Orally [...] Updated Comments Source FLU 3YRS & UP [id number] 06/22/2015 completed [facility] PNEUMOCOCCAL VACCINE 06/22/2015 completed [facility] Results Order Name Results Value Reference Range Date Interpretation Comments Source CHEM PANEL BUN 16 7 - 22 07/05/2014 [facility] CHEM PANEL Glucose Lvl 95 70 - 99 07/05/2014 <sup>2</sup>Interpretive Data: Adult reference range values reflect the clinical guidelines
of the [place] [employer]. [facility] CHEM PANEL Total Protein 7.3 6.4 - 8.4 07/05/2014 [facility] CHEM PANEL CO2 30 24 - 32 07/05/2014 [facility] CHEM PANEL ALT 29 0 - 65 07/05/2014 [facility] CHEM PANEL Albumin Lvl 4.1 3.5 - 5.0 07/05/2014 [facility] CHEM PANEL AST 14 0 - 37 07/05/2014 [facility] CHEM PANEL Alk Phos 62 39 - 136 07/05/2014 [facility] CHEM PANEL Bili Total 0.9 0.2 - 1.3 07/05/2014 [facility] CHEM PANEL eGFR 80 07/05/2014 <sup>1</sup>Result Comment: The eGFR is calculated using the CKD-EPI formula. In most young, healthy individuals the eGFR will be >90 mL/min/1.73m2. The eGFR declines with age. An eGFR of 60-89 may be normal in some populations, particularly the elderly, for whom the CKD-EPI formula has not been extensively validated. Use of the eGFR is not recommended in the following populations:& lt;br/>
Individuals with unstable creatinine concentrations, including patients [...] should be multiplied by the estimated BMI. [facility] CHEM PANEL Potassium Lvl 4.2 3.5 - 5.1 07/05/2014 [facility] CHEM PANEL Chloride Lvl 104 95 - 109 07/05/2014 [facility] CHEM PANEL Creatinine Lvl 1.1 0.5 - 1.4 07/05/2014 [facility] CHEM PANEL Sodium Lvl 139 135 - 145 07/05/2014 [facility] CHEM PANEL Calcium Lvl 8.7 8.5 - 10.5 07/05/2014 [facility] CHEM PANEL A/G Ratio 1.3 0.7 - 1.6 07/05/2014 [facility] CHEM PANEL Globulin 3.2 2.0 - 4.0 07/05/2014 [facility] CHEM PANEL AGAP 9.2 10.0 - 20.0 07/05/2014 [facility] CHEM PANEL B/C Ratio 15 6 - 25 07/05/2014 [facility] PTT 27.6 22.9 - 35.8 07/05/2014 <sup>4</sup>Interpretive Data: Heparin Therapeutic Range: 57 - 92 Seconds [facility] PT 13.2 12.0 - 14.7 07/05/2014 [facility] INR 1.00 0.85 - 1.17 07/05/2014 <sup>3</sup>Interpretive Data: RECOMMENDED RANGES FOR PROTIME INR:
2.0-3.0 for most medical and surgical thromboembolic states.
2.5-3.5 for artificial heart valves and recurrent embolism.

INR SHOULD BE USED ONLY FOR PATIENTS ON STABLE ANTICOAGULANT THERAPY. [facility] MPV 9.4 7.4 - 10.4 07/05/2014 [facility] RDW 12.2 11.5 - 14.5 07/05/2014 [facility] Platelet 155 133 - 450 07/05/2014 [facility] MCV 93.5 80.0 - 94.0 07/05/2014 [facility] Hct 45.7 42.0 - 54.0 07/05/2014 [facility] MCH 32.9 27.0 - 31.0 07/05/2014 [facility] MCHC 35.1 32.0 - 36.0 07/05/2014 [facility] WBC 8.8 3.7 - 10.4 07/05/2014 [facility] RBC 4.88 4.70 - 6.10 07/05/2014 [facility] Hgb 16.0 14.0 - 18.0 07/05/2014 [facility] Stomatocyte Slight 07/05/2014 [facility] Basophils # 0.1 0.0 - 0.2 07/05/2014 [facility] Micromegakar Slight 07/05/2014 [facility] Eosinophils 4.1 0.0 - 4.0 07/05/2014 [facility] HEMATOLOGY Basophils 0.7 0.0 - 1.0 07/05/2014 [facility] HEMATOLOGY Lymphocytes # 1.8 1.0 - 5.5 07/05/2014 [facility] Segs-Bands # 5.6 1.5 - 8.1 07/05/2014 [facility] Eosinophils # 0.4 0.0 - 0.5 07/05/2014 [facility] Monocytes # 1.0 0.0 - 0.8 07/05/2014 [facility] Monocytes 11.3 2.0 - 12.0 07/05/2014 [facility] Lymphocytes 20.5 20.0 - 40.0 07/05/2014 [facility] Segs 63.4 45.0 - 75.0 07/05/2014 [facility] Plt Morph Normal (07/05/14 2:38 PM) 07/05/2014 [facility] Pathology Reports No Data Provided for This Section Diagnostic Reports Report Value Date Source Abdomen/Pelvis wo IV contrast CT Study: Abdomen/Pelvis [...] hernia. 2. Small, fat-containing umbilical hernia. SL: [id number] 06/29/2015 [facility] Brain wo contrast CT HISTORY: Headache. Brain [...] intracranial finding. Paranasal sinus disease. SL:13 07/05/2014 [facility] Consultation Notes No Data Provided for This Section Discharge Summaries No Data Provided for This Section History and Physicals No Data Provided for This Section Vital Signs Vital Sign Value Date Comments [...] [facility] Systolic (mm Hg) 122 06/22/2015 [facility] Systolic (mm Hg) 125 07/05/2014 [facility] Diastolic (mm Hg) 60 07/05/2014 [facility] Heart Rate 66 07/05/2014 [facility] Respitory Rate 18 07/05/2014 [facility] Temperature Oral (F) 98.0 F 07/05/2014 [facility] Heart Rate 70 07/05/2014 [facility] Systolic (mm Hg) 134 07/05/2014 [facility] Diastolic (mm Hg) 90 07/05/2014 [facility] Respitory Rate 20 07/05/2014 [facility] Temperature Oral (F) 98.0 F 07/05/2014 [facility] Weight 125 07/05/2014 [facility] BMI Calculated 36.36 07/05/2014 [facility] Height 185.42 cm 07/05/2014 [facility] Respitory Rate 18 07/05/2014 [facility] Heart Rate 69 07/05/2014 [facility] Temperature Oral (F) 98.1 F 07/05/2014 [facility] Systolic (mm Hg) 151 07/05/2014 [facility] Diastolic (mm Hg) 99 07/05/2014 [facility] Temperature Oral (F) 98.5 F 07/05/2014 [facility] Systolic (mm Hg) 129 07/05/2014 [facility] Diastolic (mm Hg) 78 07/05/2014 [facility] Respitory Rate 18 07/05/2014 [facility] Heart Rate 61 07/05/2014 [facility] Systolic (mm Hg) 155 07/05/2014 [facility] Diastolic (mm Hg) 87 07/05/2014 [facility] Heart Rate 60 07/05/2014 [facility] Respitory Rate 18 07/05/2014 [facility] Temperature Oral (F) 98.9 F 07/05/2014 [facility] BMI Calculated 36.36 07/04/2014 [facility] Weight 125 07/04/2014 [facility] Height 185.42 cm 07/04/2014 [facility] Temperature Oral (F) 98.0 F 07/04/2014 [facility] Heart Rate 88 07/04/2014 [facility] Systolic (mm Hg) 155 07/04/2014 [facility] Diastolic (mm Hg) 87 07/04/2014 [facility] Respitory Rate 18 07/04/2014 [facility] Encounters Location Location Details Encounter Type Encounter Number Reason For Visit Attending Provider ADM Date DC Date Status Source [facility] [id number] Herb Osuna 07/04/2014 07/05/2014 [facility] [id number] Nadege Fletcher 07/05/2014 07/05/2014 [facility] [employer]-Physical [id number] 06/22/2015 06/22/2015 [facility] [employer] Du[employer]ator-Physical [id number] 06/22/2015 06/22/2015 [facility] [employer]-Physical [id number] 06/22/2015 06/22/2015 [facility] FOLLOW UP ON RESULTS [id number] 07/29/2015 07/29/2015 [facility] FOLLOW UP ON RESULTS [id number] 07/29/2015 07/29/2015 [facility] Refill [id number] 02/10/2016 02/10/2016 [facility] Procedures No Data Provided for This Section Assessment and Plan No Data Provided for This Section Plan of Care No Data Provided for This Section Social History Social History Date Source Social History ElementQualifiersDate Reported Ethnicity . Status , Is latvian your primary language? Yes July 29, 2015 Tobacco Use: . Are you a: current smoker, How many packs per day? less than a half pack once a week, How many years have you smoked? 10-July 29, 2015 Do you have pets? . Status: Yes, Type: dog(s), cat(s), bird(s) July 29, 2015 Marital Status: . Marisia July 29, 2015 Caffeine intake? . Status: Yes, What type: Coffee July 29, 2015 Do you exercise? . Answer: No July 29, 2015 Do you drink alcohol? . Status: Yes, Type: Wine, Beer, How often? Socially July 29, 2015 07/29/2015 [facility] Social History TypeResponse Smoking Status Never smoker; Exposure to Tobacco Smoke None; Cigarette Smoking Last 365 Days No; Reg Smoking Cessation Counseling No 07/05/2014 [facility] Family History Value Date Source QualifierDescriptionCommentDate Reported Maternal Grandmother Comment not available July 29, 2015 Paternal Grandmother Comment not available July 29, 2015 Siblings Comment not available July 29, 2015 Maternal Grandfather Comment not available July 29, 2015 Children Comment not available July 29, 2015 Father alive Comment not available July 29, 2015 Paternal Grandfather Comment not available July 29, 2015 Mother Comment not available July 29, 2015 Other: Comment not available July 29, 2015 07/31/2015 [facility] QualifierDescriptionCommentDate Reported Maternal Grandmother Comment not available June 22, 2015 Paternal Grandmother Comment not available June 22, 2015 Siblings Comment not available June 22, 2015 Maternal Grandfather Comment not available June 22, 2015 Children Comment not available June 22, 2015 Father alive Comment not available June 22, 2015 Paternal Grandfather Comment not available June 22, 2015 Mother Comment not available June 22, 2015 Other: Comment not available June 22, 2015 06/25/2015 [facility] Advance Directives No Data Provided for This Section Functional Status No Data Provided for This Section
[2018-08-15] MEDS ORDERED: KETOROLAC TROMETHAMINE 30 MG/ML VIAL IM STA (11:14)
--- NOTE | 2018-08-15 12:15 | Diagnostic Imaging Report ---
PROCEDURE:L SPINE 2-3 [facility] COMPARISON:None. INDICATIONS:Back pain FINDINGS: There are 5 [id number] lumbar-type vertebral bodies. No acute, displaced fracture or dislocation. Mild disc space narrowing and marginal osteophytosis L1-L2 through L4-L5 with the most extensive changes at L1-L2. Bilateral facet arthropathy at L5-S1. Sacroiliac joints are intact. Surgical hardware related to hip arthroplasty partially visualized on the lateral radiograph. CONCLUSION: No acute osseous abnormality. Mild multilevel degenerative disc changes and facet arthropathy of the lumbar spine as above. Dictated by: John Dove M.D. on 08/15/2018 at 12:19 Electronically approved by: John Dove M.D. on 08/15/2018 at 12:19
[2018-08-15] MEDS ORDERED: KETOROLAC TROMETHAMINE 30 MG/ML VIAL ONE (12:16)
[2018-08-15 12:45] VITALS: BP 144/95
== END 2018-08-15 12:45 | disposition home or self-care (01) ==
LOC: FSED 10:40
DX: M54.5 Low back pain (principal); M54.16 Radiculopathy, lumbar region
CPT/HCPCS: 72100; 81003; 96372; 99283; J1885

== ENCOUNTER 2019-04-22 19:12 | Emergency (ER) | payer OTHER ==
[~2019-04-22] VITALS: Ht 182.9 cm; Wt 122.5 kg
[2019-04-22] MEDS ORDERED: PREDNISONE 20 MG TAB PO ONE (20:15)
[2019-04-22] MEDS ORDERED: KETOROLAC TROMETHAMINE 60 MG/2 ML VIAL IM ONE (20:15)
[2019-04-22] MEDS ORDERED: CLINDAMYCIN PHOS 600 MG/ 4 ML VIAL IM ONE (20:15)
[2019-04-22] MEDS ORDERED: TRIMETHOPRIM/SULFAMETHOXAZOLE 160-800 MG TAB PO ONE (20:15)
[2019-04-22] MEDS ORDERED: BACTRIM DS TAB1 EACH PO (20:39)
[2019-04-22] MEDS ORDERED: CLINDAMYCIN HC300 MG PO (20:39)
[2019-04-22] MEDS ORDERED: PREDNISONE20 MG PO (20:39)
[2019-04-22 21:05] VITALS: BP 149/96
== END 2019-04-22 21:05 | disposition home or self-care (01) ==
LOC: FSED 19:12
DX: L03.818 Cellulitis of other sites (principal); L01.00 Impetigo, unspecified
CPT/HCPCS: 96372; 99283; J1885; J7512

== ENCOUNTER 2020-10-02 12:52 | Emergency (ER) | payer OTHER ==
[~2020-10-02] VITALS: Ht 185.4 cm; Wt 108.9 kg
[~2020-10-02 12:52] MED LIST changes: +BACTRIM DS TAB1 EACH PO; +CLINDAMYCIN HC300 MG PO; +PREDNISONE20 MG PO
[2020-10-02] MEDS ORDERED: DOXYCYCLINE HY100 MG PO (13:12)
== END 2020-10-02 13:29 | disposition home or self-care (01) ==
LOC: FSED 13:06
DX: R21 Rash and other nonspecific skin eruption (principal); L08.9 Local infection of the skin and subcutaneous tissue, unspecified; I10 Essential (primary) hypertension; Z96.643 Presence of artificial hip joint, bilateral
CPT/HCPCS: 87071; 87205; 99283